=== PATIENT | male | born 1965 | race Caucasian/White ===

== ENCOUNTER 2024-03-08 13:02 | Outpatient (CLI) | payer OTHER, SELFPAY ==
--- NOTE | 2024-03-08 13:28 | ECG_ITS ---
SEE SCANNED COPY FOR INTERPRETATION AND SIGNATURE MTDD
== END 2024-03-08 13:03 | disposition home or self-care (01) ==
PROVIDERS: PCP Physician Assistant; Visit Provider Physician Assistant
DX: Z01.89 Encounter for other specified special examinations (principal)
CPT/HCPCS: 93005

== ENCOUNTER 2025-09-14 01:27 | Day surgery (SDC) | payer OTHER, SELFPAY ==
[2025-08-29 14:03] VITALS: BMI 32.5
--- OUTSIDE RECORDS SUMMARY | 2025-09-14 05:33 | XMS_ITS | Clinical Summary ---
Author Organization [facility] Address [address] [place] [id number] Care Team Providers Care Leather Leveler Name Role Phone None, Provider Primary Care Provider Unavaila ble Social History Tobacco Use Types Packs/Day Years Used Date Smoking Tobacco: Never Assessed Sex and Gender Information Value Date Recorded Sex Assigned at Not on file Legal Sex Male 8:26 AM CDT Gender Identity Not on file Sexual Orientation Not on file Plan of Treatment Health Maintenance Due Date Last Done Comments Colorectal Cancer Screening Colonoscopy (10 Years) 1963 Annual Physical 1966 Hepatitis C 1981 DTaP, Tdap and Td Vaccines ( 1 - Tdap) 1982 Pneumococcal Vaccine: 50+ Ye ars (1 of 1 - PCV) 2013 Zoster Vaccines (1 of 2) 2013 COVID-19 Vaccine (1 - 2024-2 6 season) 2025 Influenza Adult (#1) 2025 RSV Immunization or 60+ Years (1 - 1-dose 75+ series) 2038 Hepatitis A Vaccines Aged Out No long er eligible based on patient's age to complete this topic Meningococcal B Vaccine Aged Out No l onger eligible based on patient's age to complete this topic Meningococcal Vaccine Aged Out No rehan shamika eligible based on patient's age to complete this topic RSV Immunizations Under 20 Months Aged Out No longer eligible based on patient's age to complete this topic Insurance [facility] Care Teams Leather Leveler Relationship Specialty Start Date End Date None, Provider, PCP - General UNKNOWN PHYSICIAN SPECIALTY 03/12/24
--- OUTSIDE RECORDS SUMMARY | 2025-09-14 05:33 | XMS_ITS | Data Portability ---
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 Not available 01/09/2024 10:55:51 07/21/2024 07/21/2024 colonoscopy due 3 years. Testosterone free and bioavailable is low but the total is normal. Cholesterol and thyroid are stable, fasting sugar kidney and liver stable and A1c is showing prediabetes. CBC is normal Not available 07/27/2024 00:26:42 01/19/2025 01/19/2025 colonoscopy due 3 years. Not available 01/19/2025 17:01:22 07/20/2025 07/20/2025 colonoscopy due 3 years. Labs are pending from a blood draw today Not available 07/20/2025 16:38:08 Plan of Treatment Reminders Order Date Submit Date Provider Last Modified By Organization Details Last Modified Time Details Appointments ANY 15 2025 03:30P M RAFAEL Walker Not available Not available Not available Lab HbA1c (hemoglob in A1c), blood 2024 026 [facility], [facility] [address], [address], [place], [address], 07/20/2025 16:37:57 testoster one, free + total, serum 2024 026 [facility], [address], [address], [place], [address], 07/20/2025 16:37:57 CBC w/ auto diff 2024 [facility], [address], [address], [place], [address], 07/20/2025 16:37:57 CMP, serum or plasma 2024 [facility], [address], [address], [place], [address], 07/20/2025 16:37:57 urinalysi s, dipstick, reflex micro 2024 [facility], [address], [address], [place], [address], 07/20/2025 16:37:57 lipid panel, serum 2024 [facility], [address], [address], [place], [address], 07/20/2025 16:37:57 PSA, serum or plasma 2024 [facility], [address], [address], [place], [address], 07/20/2025 16:37:57 HbA1c (hemoglob in A1c), blood 2024 025 [facility] [facility], [address], [address], [place], [address], 07/24/2025 16:53:17 CBC w/ auto diff 2024 025 [facility] [facility], [address], [address], [place], [address], 07/24/2025 16:53:17 CMP, serum or plasma 2024 025 [facility] [facility], [address], [address], [place], [address], 07/24/2025 16:53:16 testoster one, free + total, serum 2024 025 [facility] [facility], [address], [address], [place], [address], 07/24/2025 16:53:16 lipid panel, serum 2024 025 [facility], [address], [address], [place], [address], 07/24/2025 16:53:15 PSA, serum or plasma 2023 025 [facility], [address], [address], [place], [address], 07/05/2025 10:01:03 HbA1c (hemoglob in A1c), blood 2023 025 [facility], [address], [address], [place], [address], 07/05/2025 10:01:03 CBC w/ auto diff 2023 025 [facility], [address], [address], [place], [address], 07/05/2025 10:01:03 CMP, serum or plasma 2023 025 [facility], [address], [address], [place], [address], 07/05/2025 10:01:03 urinalysi s complete, reflex culture 2023 025 [facility], [address], [address], [place], [address], 07/05/2025 10:01:03 testoster one, free + total, serum 2023 025 [facility], [address], [address], [place], [address], 07/05/2025 10:01:02 lipid panel, serum 2023 025 [facility], [address], [address], [place], [address], 07/05/2025 10:01:03 testoster one, free + total, serum 2023 024 [facility], [address], [address], [place], [address], 02/04/2024 09:48:55 CBC w/ auto diff 2023 024 [employer] [facility], [facility], [address], [place], [address], 02/04/2024 09:49:44 CMP, serum or plasma 2023 024 [facility], [address], [address], [place], [address], 02/04/2024 09:49:31 TSH + free T4, serum 2023 024 DOMITILA [employer] [facility], [facility] [address], [address], [place], [address], 02/04/2024 09:48:24 urinalysi s complete, reflex culture 2023 024 [facility], [address], [address], [place], [address], 02/04/2024 09:49:19 lipid panel, serum 2023 024 [employer] [facility], [address], [address], [place], [address], 02/04/2024 09:50:03 PSA, serum or plasma 2023 024 [facility], [address], [address], [place], [address], 02/04/2024 09:49:09 HbA1c (hemoglob in A1c), blood 2023 024 [facility], [address], [address], [place], [address], 02/04/2024 09:48:37 Referral otolaryng ologist referral 2023 024 DOMITILA Eastman, [address] [facility], [place], [address], 02/18/2024 18:31:56 Procedures colonosco py screening (PROC) 2024 025 Miles edmond MD, [address], [address], [place], [address], 07/20/2025 17:08:43 Surgeries None recorded. Imaging None recorded. Medication Orders losartan 50 mg tablet 2023 024 [id number], [address], [place], [id number], 07/20/2025 16:28:12 amlodipin e 5 mg tablet 2023 024 [id number], [address], [place], [id number], 07/20/2025 16:28:16 Patient TargetsNo targets recorded. 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 [place] [address] Teleph one: [phone], extens ion [phone] Pathol ogy Report Surgic al Pathol ogy Report Name: PETER GUARDADO Specim en #: [id number] Age: [birth year] (Age: 58) Locati on: [facility] Sex: M Proced ure Date: Hospit al #: [id number] 07 Date Receiv ed: Date Report ed: Provid er: VERONIKA EASTMAN MD Source : Intran arabella biopsy Preope rative Diagno sis: Intran arabella lesion . Postop erativ e Diagno sis: Intran arabella lesion . Gross Descri ption: Receiv ed in formal in, labele d with a patien t label and as biops y intran arabella lesion , are friabl e, rubber y, irregu lar to polypo id stone-gr ay tissue fragme nts that aggreg ate 0.6 x 0.6 x 0.2 cm. A small amount of soft hemorr hagic tissue is also presen t. The specim en is entire ly submit elly in casset te 1. Gross examin ation (when applic able), interp retati on, and sign out were perfor med at [facility], [address] [place] [address]. FINAL DIAGNO SIS: Intran arabella lesion , biopsy : -Papil lomato us squamo us prolif eratio n with surfac e ulcera tion and florid reacti ve change s (see commen t). -Negat nina for dyspla johnny or malign duglas. Diagno sis Commen t: Histol ogic sectio ns of this intra nasal lesion specim en show a papill omatou s squamo us prolif eratio n with areas of surfac e ulcera tion, marked acute inflam mation and reacti ve squamo us epithe lial change s. There is no eviden ce of dyspla johnny or malign duglas. Elec tronic ally Signed Out ROLF VARGAS MD PATHO LOGY [facility] at[facility] Medic ine [address] [place] [address] Telep frederick: , exten julio c 07 Patho logy Repor t Surgi moreno Patho logy Repor t Name: BOLA SEXTON Speci men #: [id number] Age: [birth year] (Age: 58) Locat ion: [facility] Sex: M Proce dure Date: 2023 Hospi dillon #: [id number] Date Recei kendrick: 2023 Date Repor elly: 2023 Provi deb: VERONIKA Celeste MD [facility] e: Intra nasal biops y Preop erati ve Diagn osis: Intra nasal lesio n. Posto perat nina Diagn osis: Intra nasal lesio n. Gross Descr iptio n: Recei kendrick in forma murali, label ed with a patie nt label and as biop sy intra nasal lesio n, are friab senait, rubdemi ry, irreg ular to polyp oid stone-g ray tissu e fragm ents that aggre gate 0.6 x 0.6 x 0.2 cm. A small amoun t of soft hemor rhagi c tissu e is also prese nt. The speci men is entir tatyana submi tted in casse tte 1. Gross exami natio n (when appli cable ), inter preta tion, and sign out were perfo rmed at [facility], [address] [facility], [place] [address] . FINAL DIAGN OSIS: Intra nasal lesio n, biops y: -Shamir lloma tous squam ous proli ferat ion with surfa ce ulcer ation and arnol d react nina giordano es (see comme nt). -Nega tive for dyspl petty or malig rehan . Diagn osis Comme nt: Histo logic secti ons of this intr anasa l lesio n speci men show a papil lomat ous squam ous proli ferat ion with areas of surfa ce ulcer ation , marke d acute infla mmati on and react nina squam ous epith elial giordano es. There is no evide nce of dyspl petty or malig rehan . [place] ctron icall y Anitha d Out ROLF VARGAS MD [facility] Not Available Not Available 12/22/2024 14:39:03 07/20/20 25 07/24/2025 LIPID PANEL WITH RATIO S cholesterol, total 196 mg/dL <200 normal Not Available [facility] [address] [address] [place], [address], 07/24/2025 16:53:15 07/20/20 25 07/24/2025 LIPID PANEL WITH RATIO S HDL cholesterol 49 mg/dL > or = 40 normal Not Available [facility] [address] [address] [place], [address], 07/24/2025 16:53:15 07/20/20 25 07/24/2025 LIPID PANEL WITH RATIO S triglyceride s 87 mg/dL <150 normal Not Available [facility] [address] [address] [place], [address], 07/24/2025 16:53:15 07/20/20 25 07/24/2025 LIPID PANEL WITH RATIO S LDL-choleste rol 128 mg/dL _(moreno c) high Refer ence range : <100 Kayla able range <100 mg/dL for prima ry preve ntion ; <70 mg/dL for patie nts with CHD or diabe tic patie nts with > or = 2 CHD risk facto rs. LDL-C is now calcu lated using the Marguerite n-Hop kins calcu cathy n, which is a valid ated novel metho d provi shae dino r accur acy than the Fried marge equat ion in the estim ation of LDL-C . Marguerite knox SS et al. JAKUB. 2013; 310(1 9): 2061- 206 (http ://ed ucati on.Qu K[employer]. com/f aq/FA Q164) Not Available [employer] [facility] [address] [place], [address], 07/24/2025 16:53:15 07/20/2007/24/2025 LIPID PANEL WITH RATIO S chol/HDLC ratio 4.0 (calc ) <5.0 normal Not Available [employer] [address], [address], 07/24/2025 16:53:15 07/20/2007/24/2025 LIPID PANEL WITH RATIO S LDL/HDL ratio 2.6 (calc ) Below Brokaw ge Risk: <2.28 Brokaw ge Risk: 2.29- 4.90 Moder ate Risk: 4.91- 7.12 High Risk: >7.13 Not Available [employer] [facility] [address] [place] [address], [address], 07/24/2025 16:53:15 07/20/2007/24/2025 LIPID PANEL WITH RATIO S non HDL cholesterol 147 mg/dL _(moreno c) <130 high For patie nts with diabe deysi plus 1 major ASCVD risk facto r, treat ing to a non-H DL-C goal of <100 mg/dL (LDL- C of <70 mg/dL ) is rosy forbeso n. Not Available [employer] [facility] [place], [address], 07/24/2025 16:53:15 07/20/2007/24/2025 TESTO STERO NE, FREE, BIOAV AILAB LE AND TOTAL , MS albumin 4.3 g/dL 3.6-5. 1 Not Available [address], [address], 07/24/2025 16:53:16 07/20/2007/24/2025 TESTO STERO NE, FREE, BIOAV AILAB LE AND TOTAL , MS sex hormone binding globulin 72 nmol/ L 22-77 Not Available [address], [address], 07/24/2025 16:53:16 07/20/2007/24/2025 TESTO STERO NE, FREE, BIOAV AILAB LE AND TOTAL , MS testosterone , free 36.4 pg/mL 46.0-2 24.0 low Not Available [address], [address], 07/24/2025 16:53:16 07/20/2007/24/2025 TESTO STERO NE, FREE, BIOAV AILAB LE AND TOTAL , MS testosterone ,bioavailabl e 71.7 NG/dL 110.0- 575.0 low Not Available [address], [address], 07/24/2025 16:53:16 07/20/2007/24/2025 TESTO STERO NE, FREE, BIOAV AILAB LE AND TOTAL , MS testosterone , total, MS 537 NG/dL 250-11 00 For addit ional tejas logan refer to https ://ed ucati on.qu carlottadi [employer]. com/f aq/FA Q165 (This link is being provi ded for antonieta salazar nal/e ducat ional purpo ses only. ) (Note ) This test was devel oped and its keeley tical perfo rmanc e jewell cteri stics have been deter mined by [employer]. It has not been clear ed or appro kendrick by the FDA. This assay has been valid ated pursu ant to the CLIA regul ation s and is used for clini moreno purpo ses. F med fusabida n [address] [facility] [address] [place] [address] [phone] [facility] l Rah Davis MD, PhD Not Available [address] [address] [place], [address], 07/24/2025 16:53:16 07/20/2007/24/2025 COMPR EHENS NINA METAB OLIC PANEL glucose 96 mg/dL 65-99 normal Fasti ng refer ence inter janelle Not Available [address], [address], 07/24/2025 16:53:16 07/20/2007/24/2025 COMPR EHENS NINA METAB OLIC PANEL urea nitrogen (BUN) 16 mg/dL 7-25 normal Not Available [address], [address], 07/24/2025 16:53:16 07/20/2007/24/2025 COMPR EHENS NINA METAB OLIC PANEL creatinine 1.08 mg/dL 0.70-1 .35 normal Not Available [address], [address], 07/24/2025 16:53:16 07/20/2007/24/2025 COMPR EHENS NINA METAB OLIC PANEL eGFR 78 mL/mi n/1.7 3m2 > or = 60 normal Not Available [address], [address], 07/24/2025 16:53:16 07/20/2007/24/2025 COMPR EHENS NINA METAB OLIC PANEL BUN/creatini ne ratio SEE NOTE: (calc ) 6-22 Not Repor elly: BUN and Creat inine are withi n refer ence range . Not Available [address], [address], 07/24/2025 16:53:16 07/20/2007/24/2025 COMPR EHENS NINA METAB OLIC PANEL sodium 139 mmol/ L 135-14 6 normal Not Available [address], [address], 07/24/2025 16:53:16 07/20/2007/24/2025 COMPR EHENS NINA METAB OLIC PANEL potassium 4.6 mmol/ L 3.5-5. 3 normal Not Available [address], [address], 07/24/2025 16:53:16 07/20/2007/24/2025 COMPR EHENS NINA METAB OLIC PANEL chloride 103 mmol/ L 98-110 normal Not Available [address], [address], 07/24/2025 16:53:16 07/20/20 25 07/24/2025 COMPR EHENS NINA METAB OLIC PANEL carbon dioxide 30 mmol/ L 20-32 normal Not Available [address], [address], 07/24/2025 16:53:16 07/20/2007/24/2025 COMPR EHENS NINA METAB OLIC PANEL calcium 9.3 mg/dL 8.6-10 .3 normal Not Available [address], [address], 07/24/2025 16:53:16 07/20/20 25 07/24/2025 COMPR EHENS NINA METAB OLIC PANEL protein, total 6.6 g/dL 6.1-8. 1 normal Not Available [employer] [address], [address], 07/24/2025 16:53:16 07/20/2007/24/2025 COMPR EHENS NINA METAB OLIC PANEL albumin 4.3 g/dL 3.6-5. 1 normal Not Available [address], [address], 07/24/2025 16:53:16 07/20/2007/24/2025 COMPR EHENS NINA METAB OLIC PANEL globulin 2.3 g/dL_ (calc ) 1.9-3. 7 normal Not Available [address], [address], 07/24/2025 16:53:16 07/20/2007/24/2025 COMPR EHENS NINA METAB OLIC PANEL albumin/glob ulin ratio 1.9 (calc ) 1.0-2. 5 normal Not Available [address], [address], 07/24/2025 16:53:16 07/20/2007/24/2025 COMPR EHENS NINA METAB OLIC PANEL bilirubin, total 0.5 mg/dL 0.2-1. 2 normal Not Available [address], [address], 07/24/2025 16:53:16 07/20/2007/24/2025 COMPR EHENS NINA METAB OLIC PANEL alkaline phosphatase 54 U/L 35-144 normal Not Available [address], [address], 07/24/2025 16:53:16 07/20/2007/24/2025 COMPR EHENS NINA METAB OLIC PANEL AST 18 U/L 10-35 normal Not Available [address], [address], 07/24/2025 16:53:16 07/20/2007/24/2025 COMPR EHENS NINA METAB OLIC PANEL ALT 22 U/L 9-46 normal Not Available [address], [address], 07/24/2025 16:53:16 07/20/2007/24/2025 CBC (INCL UDES DIFF/ PLT) white blood cell count 6.7 thous and/u L 3.8-10 .8 normal Not Available [address], [address], 07/24/2025 16:53:17 07/20/2007/24/2025 CBC (INCL UDES DIFF/ PLT) red blood cell count 4.67 erika on/uL 4.20-5 .80 normal Not Available [address], [address], 07/24/2025 16:53:17 07/20/2007/24/2025 CBC (INCL UDES DIFF/ PLT) hemoglobin 14.6 g/dL 13.2-1 7.1 normal Not Available [address], [address], 07/24/2025 16:53:17 07/20/2007/24/2025 CBC (INCL UDES DIFF/ PLT) hematocrit 44.6 % 38.5-5 0.0 normal Not Available [address], [address], 07/24/2025 16:53:17 07/20/2007/24/2025 CBC (INCL UDES DIFF/ PLT) MCV 95.5 fL 80.0-1 00.0 normal Not Available [address], [address], 07/24/2025 16:53:17 07/20/2007/24/2025 CBC (INCL UDES DIFF/ PLT) MCH 31.3 pg 27.0-3 3.0 normal Not Available [address], [address], 07/24/2025 16:53:17 07/20/2007/24/2025 CBC (INCL UDES DIFF/ PLT) MCHC 32.7 g/dL 32.0-3 6.0 normal For adult s, a sligh t decre ase in the calcu lated MCHC value (in the range of 30 to 32 g/dL) is most likel y not clini dk signi deepthi t; mayito er, it shoul d be inter prete d with cauti on in corre latio n with other red cell carlos eters and the patie nt's clini moreno condi tion. Not Available [address], [address], 07/24/2025 16:53:17 07/20/2007/24/2025 CBC (INCL UDES DIFF/ PLT) RDW 12.1 % 11.0-1 5.0 normal Not Available [address], [address], 07/24/2025 16:53:17 07/20/2007/24/2025 CBC (INCL UDES DIFF/ PLT) platelet count 273 thous and/u L 140-40 0 normal Not Available [facility] [address], [address], 07/24/2025 16:53:17 07/20/2007/24/2025 CBC (INCL UDES DIFF/ PLT) MPV 10.7 fL 7.5-12 .5 normal Not Available [facility] [address], [address], 07/24/2025 16:53:17 07/20/2007/24/2025 CBC (INCL UDES DIFF/ PLT) absolute neutrophils 3484 cells /uL 1500-7 800 normal Not Available [facility] [address], [address], 07/24/2025 16:53:17 07/20/2007/24/2025 CBC (INCL UDES DIFF/ PLT) absolute lymphocytes 2399 cells /uL 850-39 00 normal Not Available [address] [place], [address], 07/24/2025 16:53:17 07/20/2007/24/2025 CBC (INCL UDES DIFF/ PLT) absolute monocytes 610 cells /uL 200-95 0 normal Not Available [address] [place], [address], 07/24/2025 16:53:17 07/20/2007/24/2025 CBC (INCL UDES DIFF/ PLT) absolute eosinophils 141 cells /uL 15-500 normal Not Available [address], [address], 07/24/2025 16:53:17 07/20/2007/24/2025 CBC (INCL UDES DIFF/ PLT) absolute basophils 67 cells /uL 0-200 normal Not Available [address], [address], 07/24/2025 16:53:17 07/20/2007/24/2025 CBC (INCL UDES DIFF/ PLT) neutrophils 52 % normal Not Available [address], [address], 07/24/2025 16:53:17 07/20/2007/24/2025 CBC (INCL UDES DIFF/ PLT) lymphocytes 35.8 % normal Not Available [address], [address], 07/24/2025 16:53:17 07/20/2007/24/2025 CBC (INCL UDES DIFF/ PLT) monocytes 9.1 % normal Not Available [address] [place], [address], 07/24/2025 16:53:17 07/20/20 25 07/24/2025 CBC (INCL UDES DIFF/ PLT) eosinophils 2.1 % normal Not Available [facility] [address] [place], [address], 07/24/2025 16:53:17 07/20/20 25 07/24/2025 CBC (INCL UDES DIFF/ PLT) basophils 1.0 % normal Not Available [facility] [address] [place], [address], 07/24/2025 16:53:17 07/20/20 25 07/24/2025 HEMOG LOBIN A1C hemoglobin A1C 5.9 %_of_ total _HGB <5.7 high For winifred ne witho ut known diabe deysi, a hemog lobin A1c value betwe en 5.7% and 6.4% is consi stent with predi abete s and shoul d be confi rmed with a follo w-up test. For someo ne with known diabe deysi, a value <7% indic ates that their diabe deysi is well contr olled . A1c targe ts shoul d be indiv idual ized based on durat ion of diabe deysi, age, comor bid condi tions , and other consi derat ions. This assay resul t is consi stent with an incre ased risk of diabe deysi. Curre ntly, no conse nsus exist s maira kaufman use of hemog lobin A1c for diagn osis of diabe deysi for child terrie. Not Available [facility] [address] [place], [address], 07/24/2025 16:53:17 03/09/20 24 elect marino nevarez am, cristinai ne ECG, 12 leads min No observ ation record ed. [facility] (Cardiology & Emg) [address], [place], [address], 03/09/2024 17:34:11 Result Notes None recorded. Problems Name Problem SNOMED Code Status Onset Date Resolution Date Notes Provider Name and Address Organization Details Recorded Time Benign essential hypertensio n 1219862 Active 2023 RAFAEL Walker Attn: Dayo corbett,[address] [place], [address], [place] [facility] 5 07:25:45 Hyperlipide magda 32342707 Active 2023 RAFAEL Walker Attn: Dayo corbett,[address] [place], [address], [place] [facility] 4 14:52:14 Long-term drug therapy Active 2023 RAFAEL Walker Attn: Dayo corbett,[address] [place], [address], [place] [facility] 4 14:52:15 Prediabetes 126520789 Active 2023 RAFAEL Walker Attn: Dayo corbett,[address] [place], [address], [place] [facility] 4 00:26:55 Male hypogonadis m 57552244 Active 2023 RAFAEL Walker Attn: Dayo corbett,[address] [place], [address], [place] [facility] 4 00:27:13 Obesity 875045685 Active 2023 RAFAEL Walker Attn: Dayo corbett,[address] [place], [address], [place] [facility] 4 00:27:35 Body mass index 30+ - obesity 693570245 Active 2024 RAFAEL Walker Attn: Dayo corbett,[address] [place], [address], [place] [facility] 5 20:40:16 Obese class I 7000319042163 07 Active 2024 RAFAEL Walker Attn: Dayo corbett,[address] [place], [address], [facility] 5 16:37:55 Problem Notes None recorded. Procedures Surgical History Date Name Laterality Status Provider Name and Address Organization Details Recorded Time operation on hip joint completed Norma Ulloa MA [facility] 01/09/2024 10:22:47 Imaging Results None recorded. Procedure Notes None recorded. Medical Equipment None Reported. Allergies No known drug allergies Medications Name Sig Start Date Stop Date Status Note LastModified by Organization Details LastModified Time losartan 50 mg tablet Take 1 tablet every day by oral route for 90 days. active Not Available Not Available No t Available latanoprost 0.005 % eye drops INSTILL 1 DROP INTO THE RIGHT EYE EVERY NIGHT AT BEDTIME active Not Available Not Available No t Available niacin ER 1,000 mg tablet,exte nded release 24 hr TAKE 2 TABLETS BY MOUTH EVERY DAY DIRECTED 07/20 completed Not Available Not Available Not Available amlodipine 5 mg tablet Take 1 tablet every day by oral route for 90 days. active Not Available Not Available No t Available dorzolamide 22.3 mg-timolol 6.8 mg/mL eye drops INSTILL 1 DROP IN RIGHT EYE TWICE DAILY active Not Available Not Available No t Available Vitals Date Recorded Systolic And Diastolic Provider Name and Address Organization Details Last Updated DateTime 01/09/2024 120/74 mm[Hg] RAFAEL Walker Attn: [address],[address] [place], [address], [facility] 01/09/2024 10:48:25 Date Recorded Body height Body mass index (BMI) Body weight Heart rate Oxygen saturation Oxygen saturation in Arterial blood by Pulse oximetry Systolic And Diastolic Provider Name and Address Organization Details Last Updated DateTime 175.26 cm 32.4 kg/m2 72922.4 5 g 70 /min 93 % 93 % 107/74 mm[Hg] Norma Ulloa MA [facility] 4 10:20:40 Date Recorded Respiratory rate Systolic And Diastolic Provider Name and Address Organization Details Last Updated DateTime 01/19/2025 16 /min 128/70 mm[Hg] RAFAEL Walker Attn: Accounting[address] [place], [address], [facility] 01/19/2025 17:09:42 Date Recorded Body height Body mass index (BMI) Body weight Heart rate Oxygen saturation Oxygen saturation in Arterial blood by Pulse oximetry Systolic And Diastolic Provider Name and Address Organization Details Last Updated DateTime 5 175.26 cm 31.3 kg/m2 69370.5 8 g 78 /min 98 % 98 % 128/78 mm[Hg] Maria Eugenia Santoyo MA [facility] 5 16:41:04 Date Recorded Respiratory rate Systolic And Diastolic Provider Name and Address Organization Details Last Updated DateTime 07/20/2025 16 /min 118/80 mm[Hg] RAFAEL Walker Attn: Accounting, [place], [address], [facility] 07/20/2025 17:09:09 Date Recorded Body height Body mass index (BMI) Body weight Oxygen saturation Oxygen saturation in Arterial blood by Pulse oximetry Heart rate Systolic And Diastolic Provider Name and Address Organization Details Last Updated DateTime 5 175.26 cm 31.5 kg/m2 77452.1 7 g 96 % 96 % 80 /min 122/80 mm[Hg] Anahi Richards MA [facility] 16:31:44 Date Recorded Systolic And Diastolic Provider Name and Address Organization Details Last Updated DateTime 07/21/2024 110/80 mm[Hg] RAFAEL Walker Attn: Accounting[address] [place], [address], [facility] 07/21/2024 16:40:17 Date Recorded Body height Body mass index (BMI) Body weight Heart rate Oxygen saturation Oxygen saturation in Arterial blood by Pulse oximetry Respiratory rate Systolic And Diastolic Provider Name and Address Organization Details Last Updated DateTime 4 175.26 cm 32.1 kg/m2 76656.7 6 g 85 /min 96 % 96 % 20 /min 118/72 mm[Hg] Nida Middleton MA [facility] 4 16:05:01 Social History Question Answer Notes LastModified by Organizat ion Details LastModified Time Tobacco Smoking Status Never Smoker Nida Middleton MA [facility], [facility] 07/21/2024 16:05:38 Do You Have An Advance Directive? No Information n ot available 07/21/2024 Are You Blind Or Do You Have Difficulty Seeing? No Information n ot available 07/21/2024 What Is Your Level Of Caffeine Consumption? None Information not available 07/21/2024 In The 14 Days Before Symptom Onset, Have You Had Close Contact With A Laboratory-confirm ed COVID-19 While That Case Was Ill? No Information n ot available 07/21/2024 In The 14 Days Before Symptom Onset, Have You Had Close Contact With A Person Who Is Under Investigation For COVID-19 While That Person Was Ill? No Information not available 07/21/2024 Have You Been To An Area Known To Be High Risk For COVID-19? No Information not available 07/21/2024 Are You Deaf Or Do You Have Serious Difficulty Hearing? No Information not available 07/21/2024 What Type Of Diet Are You Following? REGULAR Information n ot available 07/21/2024 Are There Any Guns Present In Your Home? No Information not available 07/21/2024 What Was The Date Of Your Most Recent Tobacco Screening? 07/20/2025 Information not available 07/20/2025 What Is Your Relationship Status? Information not available 07/21/2024 Do You Use Your Seat Belt Or Car Seat Routinely? No Information not available 01/19/2025 Do You Have Smoke And Carbon Monoxide Detectors In Your Home? Yes Information not available 07/21/2024 Do You Use Sunscreen Routinely? No Information not available 07/21/2024 Has Tobacco Cessation Counseling Been Provided? No Information not available 07/20/2025 Sex: Unknown Functional Status Question Answer Note LastModified by Organizat ion Details LastModified Time Do you use any illicit or recreational drugs? No Information not available 07/20/2025 Do you or have you ever used any other forms of tobacco or nicotine? No Information not available 07/20/2025 What is your level of alcohol consumption? None Information not available 07/21/2024 Are you currently employed? Yes Information not available 01/19/2025 Are you able to care for yourself independently? 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 Heavy Information not available 07/21/2024 Mental Status None recorded. Family History Relationship Description Onset Age of this Age Resolved Age Notes LastModified by Organization Details LastModified Time Mother Malignant neoplasm of kidney [email or web address] Not available 2023 10:21:37 Medical History Condition Response Diabetes N Anxiety Disorder N Atrial Fibrillation N High Blood Pressure Y Seizures/Epilepsy N Acid Reflux (GERD) N Cancer N Thyroid Problems N Depression N Asthma N Anemia N High Cholesterol Y Heart Attack ([place]) N Heart Failure N Past Encounters Encounter ID Performer Location Encounter Start Date Encounter Closed Date Diagnosis/Indication Diagnosis SNOMED-CT Code Diagnosis ICD10 Code Diagnosis IMO Codes Diagnosis Note [id number] Guillermo Benavidez MD [facility] [address] [place] [address] 01/09/2024 10:03:07 01/09/2024 11:47:16 Benign essential hypertension 8399237 I10 stable on amlodipine 5mg and losartan 50mg daily. Hyperlipidemia 08861104 E78.5 pt insurance denied niaspan tx and he's having difficulty tolerating any OTC option so has not been taking. due for fasting lipids. Long-term drug therapy 040599615 Z79.899 routine cbc, cmp , tFTs and ua due Screening for malignant neoplasm of prostate 579863985 Z12.5 psa due. Male hypogonadism 674705 06 E29.1 screening testostero ne levels ordered. Diabetes m ellitus screening 635313924 Z13.1 annual a1c screening due Adult heal th examination 155439754 Z00.01 well exam completed. Renewal of prescription 785264718 Z76.0 refill on bp medication s. Lesion of nasal cavity 7722632243 67616732 J34.89 pt reports feeling with his finger a higher nasal lesion on right medial location. this was not visible on scope examinatio n today but should be further evaluation [facility] [id number] Guillermo Benavidez MD [facility] [employer] [address] [place] [address] 07/21/2024 15:46:26 07/21/2024 16:53:56 Benign essential hypertension 3837829 I10 stable on amlodipine 5mg and losartan 50mg daily. Hyperlipidemia 96674629 E78.5 pt insurance denied niaspan tx and he's having difficulty tolerating any OTC option so has not been taking. due for fasting lipids again in December. Current lipid panel reviewed and stable Long-term drug therapy 459915209 Z79.899 routine cbc, cmp , tFTs and ua due on next labs in December Male hypogonadism 873094 06 E29.1 Following each labs. Patient is not on supplement any longer Body mass index 30+ - obesity 403690391 Z68.32 BMI 32.1 Screening for malignant neoplasm of prostate 325711450 Z12.5 psa due in December labs Prediabetes 927677430 R7 3.03 6.2% A1c. Discussed with the patient lowering simple carbohydra deysi and added sugars in the diet and increasing some cardio exercise. We will repeat A1c testing in December Obesity 731987848 E66.8 discussed healthy diet, exercise, controllin g carbohydra deysi and added sugars in the diet [id number] Guillermo Benavidez MD [facility] [employer] [address] [place] [address] 01/19/2025 15:59:09 01/24/2025 16:07:27 Body mass index 30+ - obesity 430539032 Z68.31 BMI is 31.3 Obesity 757027387 E66.9 discussed healthy diet, exercise, controllin g carbohydra deysi and added sugars in the diet Adult [facility] examination 773485036 Z00.01 well exam completed. Benign ess ential hypertension 2894251 I10 Blood pressure is 128/70, stable on amlodipine 5mg and losartan 50mg daily. Hyperlipidemia 37512742 E78.5 pt insurance denied niaspan tx and he's having difficulty tolerating any OTC option so has not been taking. due for fasting lipids in June. Long-term drug therapy 476291452 Z79.899 routine cbc, cmp due again in jun. Male hypogonadism 426519 06 E29.1 screening testostero ne levels ordered for the next set of labs. Prediabetes 304789068 R7 3.03 6% A1c. Discussed with the patient lowering simple carbohydra deysi and added sugars in the diet and increasing some cardio exercise. Next labs due in [id number] Guillermo Benavidez MD [facility] [address] [place] [address] 07/20/2025 16:15:01 07/27/2025 11:21:41 Obese class I 9557284994 18538 E66.811 E66.3 4134692032 discussed healthy diet, exercise, controllin g carbohydra deysi and added sugars in the diet Benign ess ential hypertension 8674765 I10 Patient stopped his blood pressure medicines and interestin gly enough has a perfect blood pressure 118/80 today. He has made diet modificati ons and taking some supplement and wanted to stop the medicines because of potential cause and glaucoma worsening numbers at the eye doctor. I have encouraged the patient to continue monitoring his blood pressure. The log that he brings into the office is also all normal so we will continue to monitor for any possible rebound hypertensi on Hyperlipidemia 08931358 E78.5 pt insurance denied niaspan tx and he's having difficulty tolerating any OTC option so has not been taking. due for fasting lipids again in December. Current lipid panel reviewed and stable Prediabetes 678298627 R7 3.03 6.2% A1c. Discussed with the patient lowering simple carbohydra deysi and added sugars in the diet and increasing some cardio exercise. We will repeat A1c testing in December Male hypogonadism 449739 06 E29.1 Following each labs. Patient is not on supplement any longer Long-term drug therapy 521117619 Z79.899 routine cbc, cmp , tFTs and ua due on next labs in December Screening for malignant neoplasm of prostate 723023306 Z12.5 psa due in December labs Screening for malignant neoplasm of colon 451262996 Z12.11 [id number] patient is due for follow-up colonoscop y Health Concerns Section Related Observation LastModified by Organization Detai ls LastModified Time None Recorded Concern Status LastModified by Organization Details LastModified Time None Recorded Advance Directives Directive N: Payers Insurance Date Sequence Insurance Name Policy Number Policy Elizondo Covered Member ID Elizondo Member ID Guarantor Name 07/27/2025 1 [facility] [id number] Du Buckley [id number] Du Buckley Notes Date Note Type Note Provider Name and Address Organization Details Recorded Time 4 text/html HyperlipidemiaReported by Patientpt insurance not covering niaspan anymore. was on OTC option of niacin far less tolerable and misses dosing often due to vasomotor symptoms. HypertensionReported by Patientpt is taking amlodipine 5mg daily and losartan 50mg daily. RAFAEL Walker Attn: Accounting,[address] [facility], [place], [address], [facility] 01/09/2024 19:57:26 4 text/html HyperlipidemiaReported by Patientpt insurance not covering niaspan anymore. was on OTC option of niacin far less tolerable and misses dosing often due to vasomotor symptoms. HypertensionReported by Patientpt is taking amlodipine 5mg daily and losartan 50mg daily. RAFAEL Walker Attn: Accounting,[address] [facility], [place], [address], [facility] 07/27/2024 00:27:57 5 text/html HyperlipidemiaReported by Patientpt insurance not covering niaspan anymore. was on OTC option of niacin far less tolerable and misses dosing often due to vasomotor symptoms. HypertensionReported by Patientpt is taking amlodipine 5mg daily and losartan 50mg daily. prediabetes--6% A1c Male hypogonadism history, patient is not on supplementing longer but he does do his own natural supplement treatments RAFAEL Walker Attn: Accounting,[address] [facility], [place], [address], [facility] 01/30/2025 20:41:07 5 text/html HyperlipidemiaReported by Patientpt insurance not covering niaspan anymore. was on OTC option of niacin far less tolerable and misses dosing often due to vasomotor symptoms. HypertensionReported by Patientpt is taking amlodipine 5mg daily and losartan 50mg daily. prediabetes--6% A1c on last labs Male hypogonadism history, patient is not on supplementing longer but he does do his own natural supplement treatments RAFAEL Walker Attn: Accounting,[address] [place], [address], [facility] 07/27/2025 07:26:43
--- OUTSIDE RECORDS SUMMARY | 2025-09-14 05:33 | XMS_ITS | Clinical Summary ---
Author Organization [facility] Address [address], [address] [address] Phone Care Team Providers Care Assistant County Engineer Name Role Phone Dennis Adamson MD Primary Care Provider [phone] Eddy Estrella DO Unavailable [phone] Allergies No known active allergies Medications polyethylene glycol (MIRALAX) Powder Mix the entire bottle with 64 oz of a clear liquid. Use as directed by the office for colonoscopy prep. 255 g 0 6 Active amLODIPine (NORVASC) 5 MG Tablet Take 5 mg by mouth daily. Active losartan (COZAAR) 50 MG Tablet Take 50 mg by mouth daily. Active NIACIN CR PO Take 1,000 mg by mouth daily. Active latanoprost (XALATAN) 0.005 % Solution Place 1 Drop in affected eye(s) nightly. Active dorzolamide (TRUSOPT) 2 % Solution Place 1 Drop in affected eye(s) 3 times daily. Active TESTOSTERONE TD 200 mg by Injection route daily. Active L-Arginine Powder 500 mg of ampicillin by Does not apply route daily. Active calcium & magnesium carbonates (MYLANTA) 311-232 MG Tablet Take 1 Tab by mouth as needed. Active Foster-3 Fatty Acids (FISH OIL) 1200 MG Capsule Take 1,200 mg by mouth daily. Active Multiple Vitamin (MULTI-VITAMIN PO) Take by mouth. Activ e Family History Medical History Relation Name Comments Kidney Cancer Mother Relation Name Status Comments Mother Social History Tobacco Use Types Packs/Day Years Used Date Smoking Tobacco: Never Alcohol Use Standard Drinks/Week Comments Yes 0 (1 standard drink = 0.6 oz pur e alcohol) Sex and Gender Information Value Date Recorded Sex Assigned at Not on file Legal Sex Male 1:16 PM CDT Gender Identity Not on file Sexual Orientation Not on file Plan of Treatment Health Maintenance Due Date Last Done Comments Hepatitis C Virus (HCV) Screening 1965 TdaP Immunization 1965 Cologuard 2008 Immunochemical Fecal Occult Blood 2008 Pneumococcal Immunization (5 0+ years) (1 of 1 - PCV) 2013 Zoster Immunization (1 of 2) 2013 Influenza Immunization (#1) 2025 SARS-COV-2 Immunization ( - season) 2025 Colonoscopy 07/11/2026 07/11/2016 Colorectal Cancer Screening 07/11/2026 Respiratory Syncytial Virus (RSV) Immunization (Adult) (1 - 1-dose 75+ series) 2038 Hepatitis B Immunization Aged Out No longer eligible based on patient's age to complete this topic Human Papillomavirus (HPV) Immunization Aged Out No longer eligible b ased on patient's age to complete this topic Meningococcal Immunization (ACWY) Aged Out No longer eligible based on patient's age to complete this topic Rotavirus Immunization Aged Out No lo nger eligible based on patient's age to complete this topic Procedures Procedure Name Priority Date/Time Associated Diagnosis Comments COLONOSCOPY Routine 07/11/2016 from Last 3 Months or Most Recently Relevant to Health Maintenance Results * COLONOSCOPY (07/11/2016) Dennis Adamson MD PROCEDURE/MINOR SURGICAL ORDER MANA Final Result from Last 3 Months or Most Recently Relevant to Health Maintenance Care Teams Assistant County Engineer Relationship Specialty Start Date End Date Dennis Adamson MD PCP - General Internal Medicine 02/26/16 Eddy Estrella DO Consulting Physician Gastroenterology 07/11/16
--- OUTSIDE RECORDS SUMMARY | 2025-09-14 05:33 | XMS_ITS | Data Portability ---
Author Organization [place] - [facility], Main Office Address [address] [place] [address] Assessment Encounter Date Assessment Date Assessment LastModified by Organization Details LastModified Time 05/26/2023 05/26/2023 colonoscopy 2016 he thinks. was given 10 year clearance. will get record from [facility]. [email or web address] Not available 05/26/2023 16:48:32 Plan of Treatment Reminders Order Date Submit Date Provider Last Modified By Organization Details Last Modified Time Details Appointments None recorded . Lab CBC w/ auto diff 023 11/15/19 24 [email or web address] [facility], [address], [place], [address], 4 18:07:05 CMP, serum or plasma 023 11/15/19 24 [email or web address] [facility], [address], [place], [address], 4 18:07:05 HbA1c (hemoglo bin A1c), blood 023 11/15/19 24 [id number] [facility], [address], [place], [address], 4 18:07:05 testoste onel, free + total, serum 023 11/15/19 24 [id number] [facility], [address], [place], [address], 4 18:07:04 lipid panel, serum 023 11/15/19 24 [id number] [facility], [address], [place], [address], 18:07:04 Referral None recorded . Procedures None recorded . Surgeries None recorded . Imaging None recorded . Medication Orders None recorded . Patient TargetsNo targets recorded. Patient InstructionsNo instructions recorded. Reason for Referral None Reported. Results Created Date Observation Date Name Description Value Unit Range Abnormal Flag Note LastModifiedBy Organization Detail LastModifiedTime 05/05/2005/08/2021 TESTO STERO NE, TOTAL , MS testosterone , total, MS 376 NG/dL 250-11 00 Men with clini dk signi fican t hypog onada l sympt oms and testo stero ne value s repea tedly in the range For addit ional infor tejas medina e refer to https ://ed ucati on.IntY. MobileRQ/f aq/To Rui bhatia erone LCMSM S (This link is being provi ded for infor martin nal/e ducat ional purpo ses only. ) (Note ) This test was devel oped and its keeley tical perfo rmanc e jewell cteri stics have been deter mined by [employer]. It has not been clear ed or appro kendrick by the FDA. This assay has been valid ated pursu ant to the CLIA regul ation s and is used for clini moreno purpo ses. CECILIA knox [address] [facility] [address] [facility] [address] [phone] Natanael hunter MD Not Available [facility] [address] [place], [address], 05/24/2021 14:45:05 05/05/2005/08/2021 PSA, TOTAL PSA, total 0.5 NG/mL < or = 4.0 normal The total PSA value from this assay emily goodwin is stand ardiz ed again st the WHO stand gertrudis. The test resul t will be appro ximat tatyana 20% lower when damien red to the equim olar- stand ardiz ed total PSA (Padron man Coult er). Damien rison of seria l PSA resul ts shoul d be inter prete d with this fact in mind. This test was perfo rmed using the Sieme ns chemi lumin escen t metho d. Value s obtai dea from diffe rent assay metho ds canno t be used inter giordano eably . PSA level s, regar dless of value , shoul d not be inter prete d as absol [place] evide nce of the prese nce or absen ce of disea se. Not Available [address], [address], 05/24/2021 14:45:03 05/05/20 21 05/08/2021 CBC (INCL UDES DIFF/ PLT) white blood cell count 7.0 thous and/u L 3.8-10 .8 normal Not Available [address], [address], 05/24/2021 14:45:02 05/05/20 21 05/08/2021 CBC (INCL UDES DIFF/ PLT) red blood cell count 4.79 erika on/uL 4.20-5 .80 normal Not Available [address], [address], 05/24/2021 14:45:02 05/05/20 21 05/08/2021 CBC (INCL UDES DIFF/ PLT) hemoglobin 15.3 g/dL 13.2-1 7.1 normal Not Available [address], [address], 05/24/2021 14:45:02 05/05/2005/08/2021 CBC (INCL UDES DIFF/ PLT) hematocrit 45.5 % 38.5-5 0.0 normal Not Available [address], [address], 05/24/2021 14:45:02 05/05/20 21 05/08/2021 CBC (INCL UDES DIFF/ PLT) MCV 95.0 fL 80.0-1 00.0 normal Not Available [address], [address], 05/24/2021 14:45:02 05/05/20 21 05/08/2021 CBC (INCL UDES DIFF/ PLT) MCH 31.9 pg 27.0-3 3.0 normal Not Available [address], [address], 05/24/2021 14:45:02 05/05/2005/08/2021 CBC (INCL UDES DIFF/ PLT) MCHC 33.6 g/dL 32.0-3 6.0 normal Not Available [address], [address], 05/24/2021 14:45:02 05/05/2005/08/2021 CBC (INCL UDES DIFF/ PLT) RDW 12.4 % 11.0-1 5.0 normal Not Available [address], [address], 05/24/2021 14:45:02 05/05/2005/08/2021 CBC (INCL UDES DIFF/ PLT) platelet count 243 thous and/u L 140-40 0 normal Not Available [address], [address], 05/24/2021 14:45:02 05/05/2005/08/2021 CBC (INCL UDES DIFF/ PLT) MPV 11.3 fL 7.5-12 .5 normal Not Available [address], [address], 05/24/2021 14:45:02 05/05/2005/08/2021 CBC (INCL UDES DIFF/ PLT) absolute neutrophils 3934 cells /uL 1500-7 800 normal Not Available [address], [address], 05/24/2021 14:45:02 05/05/20 21 05/08/2021 CBC (INCL UDES DIFF/ PLT) absolute lymphocytes 2142 cells /uL 850-39 00 normal Not Available [address], [address], 05/24/2021 14:45:02 05/05/20 21 05/08/2021 CBC (INCL UDES DIFF/ PLT) absolute monocytes 679 cells /uL 200-95 0 normal Not Available [address], [address], 05/24/2021 14:45:02 05/05/20 21 05/08/2021 CBC (INCL UDES DIFF/ PLT) absolute eosinophils 182 cells /uL 15-500 normal Not Available [address], [address], 05/24/2021 14:45:02 05/05/20 21 05/08/2021 CBC (INCL UDES DIFF/ PLT) absolute basophils 63 cells /uL 0-200 normal Not Available [address], [address], 05/24/2021 14:45:02 05/05/20 21 05/08/2021 CBC (INCL UDES DIFF/ PLT) neutrophils 56.2 % normal Not Available [address], [address], 05/24/2021 14:45:02 05/05/20 21 05/08/2021 CBC (INCL UDES DIFF/ PLT) lymphocytes 30.6 % normal Not Available [address], [address], 05/24/2021 14:45:02 05/05/20 21 05/08/2021 CBC (INCL UDES DIFF/ PLT) monocytes 9.7 % normal Not Available [address], [address], 05/24/2021 14:45:02 05/05/20 21 05/08/2021 CBC (INCL UDES DIFF/ PLT) eosinophils 2.6 % normal Not Available [address], [address], 05/24/2021 14:45:02 05/05/20 21 05/08/2021 CBC (INCL UDES DIFF/ PLT) basophils 0.9 % normal Not Available [address], [address], 05/24/2021 14:45:02 05/05/20 21 05/08/2021 HEMOG LOBIN A1C hemoglobin A1C 5.4 %_of_ total _HGB <5.7 normal Not Available [address], [address], 05/24/2021 14:45:01 05/05/20 21 05/08/2021 COMPR EHENS NINA METAB OLIC PANEL glucose 108 mg/dL 65-99 high Fasti ng refer ence inter janelle For someo ne witho ut known diabe deysi, a gluco se value betwe en 100 and 125 mg/dL is consi stent with predi abete s and shoul d be confi rmed with a follo w-up test. Not Available [address], [address], 05/24/2021 14:44:59 05/05/20 21 05/08/2021 COMPR EHENS NINA METAB OLIC PANEL urea nitrogen (BUN) 19 mg/dL 7-25 normal Not Available [address], [address], 05/24/2021 14:44:59 05/05/20 21 05/08/2021 COMPR EHENS NINA METAB OLIC PANEL creatinine 0.94 mg/dL 0.70-1 .33 normal For patie nts >49 years of age, the refer ence limit for Creat inine is appro ximat tatyana 13% highe r for peopl e ident ified as Afric an-Am vashti n. Not Available [address], [address], 05/24/2021 14:44:59 05/05/20 21 05/08/2021 COMPR EHENS NINA METAB OLIC PANEL eGFR non-afr. ugandan 90 mL/mi n/1.7 3m2 > or = 60 normal Not Available [address], [address], 05/24/2021 14:44:59 05/05/20 21 05/08/2021 COMPR EHENS NINA METAB OLIC PANEL eGFR 104 mL/mi n/1.7 3m2 > or = 60 normal Not Available [address], [address], 05/24/2021 14:44:59 05/05/20 21 05/08/2021 COMPR EHENS NINA METAB OLIC PANEL BUN/creatini ne ratio not applic able (calc ) 6-22 Not Available [address], [address], 05/24/2021 14:44:59 05/05/20 21 05/08/2021 COMPR EHENS NINA METAB OLIC PANEL sodium 138 mmol/ L 135-14 6 normal Not Available [address], [address], 05/24/2021 14:44:59 05/05/20 21 05/08/2021 COMPR EHENS NINA METAB OLIC PANEL potassium 4.7 mmol/ L 3.5-5. 3 normal Not Available [address], [address], 05/24/2021 14:44:59 05/05/20 21 05/08/2021 COMPR EHENS NINA METAB OLIC PANEL chloride 102 mmol/ L 98-110 normal Not Available [address], [address], 05/24/2021 14:44:59 05/05/20 21 05/08/2021 COMPR EHENS NINA METAB OLIC PANEL carbon dioxide 31 mmol/ L 20-32 normal Not Available [address], [address], 05/24/2021 14:44:59 05/05/20 21 05/08/2021 COMPR EHENS NINA METAB OLIC PANEL calcium 8.8 mg/dL 8.6-10 .3 normal Not Available [address], [address], 05/24/2021 14:44:59 05/05/20 21 05/08/2021 COMPR EHENS NINA METAB OLIC PANEL protein, total 6.0 g/dL 6.1-8. 1 low Not Available [address], [address], 05/24/2021 14:44:59 05/05/20 21 05/08/2021 COMPR EHENS NINA METAB OLIC PANEL albumin 3.9 g/dL 3.6-5. 1 normal Not Available [address], [address], 05/24/2021 14:44:59 05/05/20 21 05/08/2021 COMPR EHENS NINA METAB OLIC PANEL globulin 2.1 g/dL_ (calc ) 1.9-3. 7 normal Not Available [address], [address], 05/24/2021 14:44:59 05/05/20 21 05/08/2021 COMPR EHENS NINA METAB OLIC PANEL albumin/glob ulin ratio 1.9 (calc ) 1.0-2. 5 normal Not Available [address], [address], 05/24/2021 14:44:59 05/05/20 21 05/08/2021 COMPR EHENS NINA METAB OLIC PANEL bilirubin, total 0.4 mg/dL 0.2-1. 2 normal Not Available [address], [address], 05/24/2021 14:44:59 05/05/20 21 05/08/2021 COMPR EHENS NINA METAB OLIC PANEL alkaline phosphatase 44 U/L 35-144 normal Not Available [address] [address] [place], [address], 05/24/2021 14:44:59 05/05/20 21 05/08/2021 COMPR EHENS NINA METAB OLIC PANEL AST 18 U/L 10-35 normal Not Available [address], [address], 05/24/2021 14:44:59 05/05/20 21 05/08/2021 COMPR EHENS NINA METAB OLIC PANEL ALT 23 U/L 9-46 normal Not Available [address], [address], 05/24/2021 14:44:59 05/05/20 21 05/08/2021 LIPID PANEL WITH RATIO S cholesterol, total 170 mg/dL <200 normal Not Available [address], [address], 05/24/2021 14:44:58 05/05/20 21 05/08/2021 LIPID PANEL WITH RATIO S HDL cholesterol 37 mg/dL > or = 40 low Not Available [address], [address], 05/24/2021 14:44:58 05/05/20 21 05/08/2021 LIPID PANEL WITH RATIO S triglyceride s 77 mg/dL <150 normal Not Available [address], [address], 05/24/2021 14:44:58 05/05/20 21 05/08/2021 LIPID PANEL WITH RATIO S LDL-choleste rol 116 mg/dL _(moreno c) high Refer ence range : <100 Kayla able range <100 mg/dL for prima ry preve ntion ; <70 mg/dL for patie nts with CHD or diabe tic patie nts with > or = 2 CHD risk facto rs. LDL-C is now calcu lated using the Marguerite n-Hop kins calcu latio n, which is a valid ated novel metho d provi ding dino r accur acy than the Fried marge equat ion in the estim ation of LDL-C . Marguerite knox SS et al. JAKUB. 2013; 310(1 9): 2061- 2068 (http ://ed ucati on.Qu Tethis. com/f aq/FA Q164) Not Available [facility] [address] [place], [address], 05/24/2021 14:44:58 05/05/20 21 05/08/2021 LIPID PANEL WITH RATIO S chol/HDLC ratio 4.6 (calc ) <5.0 normal Not Available [employer] [facility] [address] [place], [address], 05/24/2021 14:44:58 05/05/2005/08/2021 LIPID PANEL WITH RATIO S LDL/HDL ratio 3.1 (calc ) Below Gabriels ge Risk: <2.28 Gabriels ge Risk: 2.29- 4.90 Moder ate Risk: 4.91- 7.12 High Risk: >7.13 Not Available [facility] [address] [place], [address], 05/24/2021 14:44:58 05/05/2005/08/2021 LIPID PANEL WITH RATIO S non HDL cholesterol 133 mg/dL _(moreno c) <130 high For patie nts with diabe deysi plus 1 major ASCVD risk facto r, treat ing to a non-H DL-C goal of <100 mg/dL (LDL- C of <70 mg/dL ) is consi dered a thera peuti c optio n. Not Available [address], [address], 05/24/2021 14:44:58 11/10/19 22 11/15/2021 CULTU RE, URINE , ROUTI NE culture, urine, routine CULTU RE, URINE , ROUTI NE Micro Numbe r: [id number] Test Statu s: Final Speci men Sourc e: Urine , clean catch Speci men Quali ty: Adequ ate Resul t: No Growt h Not Available [address], [address], 11/15/2021 02:01:25 11/10/19 22 11/15/2021 CBC (INCL UDES DIFF/ PLT) white blood cell count 5.5 thous and/u L 3.8-10 .8 normal Not Available [address], [address], 11/15/2021 02:01:24 11/10/19 22 11/15/2021 CBC (INCL UDES DIFF/ PLT) red blood cell count 5.10 erika on/uL 4.20-5 .80 normal Not Available [address], [address], 11/15/2021 02:01:24 11/10/19 22 11/15/2021 CBC (INCL UDES DIFF/ PLT) hemoglobin 15.8 g/dL 13.2-1 7.1 normal Not Available [address], [address], 11/15/2021 02:01:24 11/10/19 22 11/15/2021 CBC (INCL UDES DIFF/ PLT) hematocrit 46.5 % 38.5-5 0.0 normal Not Available [address], [address], 11/15/2021 02:01:11/10/19 22 11/15/2021 CBC (INCL UDES DIFF/ PLT) MCV 91.2 fL 80.0-1 00.0 normal Not Available [address], [address], 11/15/2021 02:01:11/10/19 22 11/15/2021 CBC (INCL UDES DIFF/ PLT) MCH 31.0 pg 27.0-3 3.0 normal Not Available [address], [address], 11/15/2021 02:01:11/10/19 22 11/15/2021 CBC (INCL UDES DIFF/ PLT) MCHC 34.0 g/dL 32.0-3 6.0 normal Not Available [address], [address], 11/15/2021 02:01:11/10/19 22 11/15/2021 CBC (INCL UDES DIFF/ PLT) RDW 12.5 % 11.0-1 5.0 normal Not Available [address], [address], 11/15/2021 02:01:11/10/19 22 11/15/2021 CBC (INCL UDES DIFF/ PLT) platelet count 311 thous and/u L 140-40 0 normal Not Available [address], [address], 11/15/2021 02:01:11/10/19 22 11/15/2021 CBC (INCL UDES DIFF/ PLT) MPV 10.9 fL 7.5-12 .5 normal Not Available [address], [address], 11/15/2021 02:01:11/10/19 22 11/15/2021 CBC (INCL UDES DIFF/ PLT) absolute neutrophils 2827 cells /uL 1500-7 800 normal Not Available [address], [address], 11/15/2021 02:01:24 11/10/19 22 11/15/2021 CBC (INCL UDES DIFF/ PLT) absolute lymphocytes 1859 cells /uL 850-39 00 normal Not Available [address], [address], 11/15/2021 02:01:11/10/19 22 11/15/2021 CBC (INCL UDES DIFF/ PLT) absolute monocytes 550 cells /uL 200-95 0 normal Not Available [address], [address], 11/15/2021 02:01:11/10/19 22 11/15/2021 CBC (INCL UDES DIFF/ PLT) absolute eosinophils 193 cells /uL 15-500 normal Not Available [address], [address], 11/15/2021 02:01:11/10/19 22 11/15/2021 CBC (INCL UDES DIFF/ PLT) absolute basophils 72 cells /uL 0-200 normal Not Available [address], [address], 11/15/2021 02:01:11/10/19 22 11/15/2021 CBC (INCL UDES DIFF/ PLT) neutrophils 51.4 % normal Not Available [address], [address], 11/15/2021 02:01:11/10/19 22 11/15/2021 CBC (INCL UDES DIFF/ PLT) lymphocytes 33.8 % normal Not Available [address], [address], 11/15/2021 02:01:24 11/10/19 22 11/15/2021 CBC (INCL UDES DIFF/ PLT) monocytes 10.0 % normal Not Available [address], [address], 11/15/2021 02:01:11/10/19 22 11/15/2021 CBC (INCL UDES DIFF/ PLT) eosinophils 3.5 % normal Not Available [address], [address], 11/15/2021 02:01:11/10/19 22 11/15/2021 CBC (INCL UDES DIFF/ PLT) basophils 1.3 % normal Not Available [address], [address], 11/15/2021 02:01:11/10/19 22 11/15/2021 COMPR EHENS NINA METAB OLIC PANEL glucose 98 mg/dL 65-99 normal Fasti ng refer ence inter janelle Not Available [address], [address], 11/15/2021 02:01:11/10/19 22 11/15/2021 COMPR EHENS NINA METAB OLIC PANEL urea nitrogen (BUN) 11 mg/dL 7-25 normal Not Available [address], [address], 11/15/2021 02:01:11/10/19 22 11/15/2021 COMPR EHENS NINA METAB OLIC PANEL creatinine 0.99 mg/dL 0.70-1 .33 normal For patie nts >49 years of age, the refer ence limit for Creat inine is appro ximat tatyana 13% highe r for peopl e ident ified as Afric an-Am vashti n. Not Available [address], [address], 11/15/2021 02:01:11/10/19 22 11/15/2021 COMPR EHENS NINA METAB OLIC PANEL eGFR non-afr. ugandan 84 mL/mi n/1.7 3m2 > or = 60 normal Not Available [address], [address], 11/15/2021 02:01:24 11/10/19 22 11/15/2021 COMPR EHENS NINA METAB OLIC PANEL eGFR 97 mL/mi n/1.7 3m2 > or = 60 normal Not Available [address], [address], 11/15/2021 02:01:24 11/10/19 22 11/15/2021 COMPR EHENS NINA METAB OLIC PANEL BUN/creatini ne ratio not applic able (calc ) 6-22 Not Available [address], [address], 11/15/2021 02:01:11/10/19 22 11/15/2021 COMPR EHENS NINA METAB OLIC PANEL sodium 141 mmol/ L 135-14 6 normal Not Available [address], [address], 11/15/2021 02:01:24 11/10/19 22 11/15/2021 COMPR EHENS NINA METAB OLIC PANEL potassium 4.2 mmol/ L 3.5-5. 3 normal Not Available [address], [address], 11/15/2021 02:01:24 11/10/19 22 11/15/2021 COMPR EHENS NINA METAB OLIC PANEL chloride 102 mmol/ L 98-110 normal Not Available [address], [address], 11/15/2021 02:01:24 11/10/19 22 11/15/2021 COMPR EHENS NINA METAB OLIC PANEL carbon dioxide 34 mmol/ L 20-32 high Not Available [address], [address], 11/15/2021 02:01:11/10/19 22 11/15/2021 COMPR EHENS NINA METAB OLIC PANEL calcium 9.5 mg/dL 8.6-10 .3 normal Not Available [address], [address], 11/15/2021 02:01:11/10/19 22 11/15/2021 COMPR EHENS NINA METAB OLIC PANEL protein, total 6.9 g/dL 6.1-8. 1 normal Not Available [address], [address], 11/15/2021 02:01:11/10/19 22 11/15/2021 COMPR EHENS NINA METAB OLIC PANEL albumin 4.5 g/dL 3.6-5. 1 normal Not Available [address], [address], 11/15/2021 02:01:11/10/19 22 11/15/2021 COMPR EHENS NINA METAB OLIC PANEL globulin 2.4 g/dL_ (calc ) 1.9-3. 7 normal Not Available [address], [address], 11/15/2021 02:01:11/10/19 22 11/15/2021 COMPR EHENS NINA METAB OLIC PANEL albumin/glob ulin ratio 1.9 (calc ) 1.0-2. 5 normal Not Available [address], [address], 11/15/2021 02:01:11/10/19 22 11/15/2021 COMPR EHENS NINA METAB OLIC PANEL bilirubin, total 0.6 mg/dL 0.2-1. 2 normal Not Available [address], [address], 11/15/2021 02:01:24 11/10/19 22 11/15/2021 COMPR EHENS NINA METAB OLIC PANEL alkaline phosphatase 67 U/L 35-144 normal Not Available [facility] [address], [address], 11/15/2021 02:01:24 11/10/19 22 11/15/2021 COMPR EHENS NINA METAB OLIC PANEL AST 21 U/L 10-35 normal Not Available [address], [address], 11/15/2021 02:01:24 11/10/19 22 11/15/2021 COMPR EHENS NINA METAB OLIC PANEL ALT 27 U/L 9-46 normal Not Available [address], [address], 11/15/2021 02:01:24 11/10/19 22 11/15/2021 LIPID PANEL WITH REFLE X TO DIREC T LDL cholesterol, total 167 mg/dL <200 normal Not Available [address], [address], 11/15/2021 02:01:23 11/10/19 22 11/15/2021 LIPID PANEL WITH REFLE X TO DIREC T LDL HDL cholesterol 46 mg/dL > or = 40 normal Not Available [address], [address], 11/15/2021 02:01:23 11/10/19 22 11/15/2021 LIPID PANEL WITH REFLE X TO DIREC T LDL triglyceride s 68 mg/dL <150 normal Not Available [address], [address], 11/15/2021 02:01:23 11/10/19 22 11/15/2021 LIPID PANEL WITH REFLE X TO DIREC T LDL LDL-choleste rol 106 mg/dL _(moreno c) high Refer ence range [...] SS et al. JAKUB. 2013; 310(1 9): 206- 206 (http ://ed ucati on.Qu estDi [employer]. com/f aq/FA Q164) Not Available [facility] [address] [address] [place], [address], 11/15/2021 02:01:11/10/19 22 11/15/2021 LIPID PANEL WITH REFLE X TO DIREC T LDL chol/HDLC ratio 3.6 (calc ) <5.0 normal Not Available [facility] [address] [address] [address], [place], [address], 11/15/2021 02:01:11/10/19 22 11/15/2021 LIPID PANEL WITH REFLE X TO DIREC T LDL non HDL cholesterol 121 mg/dL _(moreno c) <130 normal For patie nts with diabe deysi plus 1 major ASCVD risk facto r, treat ing to a non-H DL-C goal of <100 mg/dL (LDL- C of <70 mg/dL ) is consi dered a thera peuti c optio n. Not Available [facility] [address] [address] [address], [place], [address], 11/15/2021 02:01:23 11/10/19 22 11/15/2021 TSH+F REE T4 TSH 2.01 mIU/L 0.40-4 .50 normal Not Available [facility] [address] [address] [place], [address], 11/15/2021 02:01:22 11/10/19 22 11/15/2021 TSH+F REE T4 T4, free 1.0 NG/dL 0.8-1. 8 normal Not Available [address] [address] [place], [address], 11/15/2021 02:01:22 11/10/19 22 11/15/2021 TESTO STERO NE, FREE, BIOAV AILAB LE AND TOTAL , MS testosterone , total, MS 499 NG/dL 250-11 00 For addit ional infor tejas medina refer to https ://ed ucati on.qu estdi [employer] t[employer]. com/f aq/FA Q165 (This link is being provi ded for infor martin nal/e ducat ional purpo ses only. ) (Note ) This test was devel oped and its keeley tical perfo rmanc e jewell cteri stics have been deter mined by [facility]. It has not been clear ed or appro kendrick by the FDA. This assay has been valid ated pursu ant to the CLIA regul ation s and is used for clini moreno purpo ses. MDF med fusio n [address] [facility] [address] [facility] [address] [phone] Natanael hunter MD Not Available [facility] [address] [address] [address], [place], [address], 11/15/2021 02:01:11/10/19 22 11/15/2021 TESTO STERO NE, FREE, BIOAV AILAB LE AND TOTAL , MS albumin 4.7 g/dL 3.6-5. 1 Not Available [facility] [address] [address] [place], [address], 11/15/2021 02:01:11/10/19 22 11/15/2021 TESTO STERO NE, FREE, BIOAV AILAB LE AND TOTAL , MS sex hormone binding globulin 51.5 nmol/ L 22-77 Not Available [facility] [address] [address] [place], [address], 11/15/2021 02:01:19 11/10/19 22 11/15/2021 TESTO STERO NE, FREE, BIOAV AILAB LE AND TOTAL , MS testosterone , free 45.2 pg/mL 46.0-2 24.0 low Not Available [facility] [address] [place], [address], 11/15/2021 02:01:11/10/19 22 11/15/2021 TESTO STERO NE, FREE, BIOAV AILAB LE AND TOTAL , MS testosterone ,bioavailabl e 96.9 NG/dL 110.0- 575.0 low Not Available [facility] [address] [address] [place], [address], 11/15/2021 02:01:05/04/20 22 05/07/2022 PSA, TOTAL PSA, total 0.83 NG/mL < or = 4.00 normal The total PSA value from this assay syste m is stand ardiz ed again st the WHO stand gertrudis. The test resul t will be appro ximat tatyana 20% lower when damien red to the equim olar- stand ardiz ed total PSA (Padron man Coult er). Damien rison of seria l PSA resul ts shoul d be inter prete d with this fact in mind. This test was perfo rmed using the [facility] chemi lumin escen t metho d. Value s obtai dea from diffe rent assay metho ds canno t be used inter giordano eably . PSA level s, regar dless of value , shoul d not be inter prete d as absol [place] ev[place] nce of the prese nce or absen ce of disea se. Not Available [facility] [address] [address] [place], [address], 05/07/2022 13:40:34 05/04/20 22 05/07/2022 CBC (INCL UDES DIFF/ PLT) white blood cell count 6.4 thous and/u L 3.8-10 .8 normal Not Available [facility] [address] [address] [place], [address], 05/07/2022 13:40:32 05/04/20 22 05/07/2022 CBC (INCL UDES DIFF/ PLT) red blood cell count 4.74 erika on/uL 4.20-5 .80 normal Not Available [address], [address], 05/07/2022 13:40:32 05/04/20 22 05/07/2022 CBC (INCL UDES DIFF/ PLT) hemoglobin 15.1 g/dL 13.2-1 7.1 normal Not Available [address], [address], 05/07/2022 13:40:32 05/04/20 22 05/07/2022 CBC (INCL UDES DIFF/ PLT) hematocrit 45.5 % 38.5-5 0.0 normal Not Available [address], [address], 05/07/2022 13:40:32 05/04/20 22 05/07/2022 CBC (INCL UDES DIFF/ PLT) MCV 96.0 fL 80.0-1 00.0 normal Not Available [address], [address], 05/07/2022 13:40:32 05/04/20 22 05/07/2022 CBC (INCL UDES DIFF/ PLT) MCH 31.9 pg 27.0-3 3.0 normal Not Available [address], [address], 05/07/2022 13:40:32 05/04/20 22 05/07/2022 CBC (INCL UDES DIFF/ PLT) MCHC 33.2 g/dL 32.0-3 6.0 normal Not Available [address], [address], 05/07/2022 13:40:32 05/04/20 22 05/07/2022 CBC (INCL UDES DIFF/ PLT) RDW 11.8 % 11.0-1 5.0 normal Not Available [address], [address], 05/07/2022 13:40:32 05/04/20 22 05/07/2022 CBC (INCL UDES DIFF/ PLT) platelet count 283 thous and/u L 140-40 0 normal Not Available [address], [address], 05/07/2022 13:40:32 05/04/20 22 05/07/2022 CBC (INCL UDES DIFF/ PLT) MPV 11.2 fL 7.5-12 .5 normal Not Available [address], [address], 05/07/2022 13:40:32 05/04/20 22 05/07/2022 CBC (INCL UDES DIFF/ PLT) absolute neutrophils 3411 cells /uL 1500-7 800 normal Not Available [address], [address], 05/07/2022 13:40:32 05/04/20 22 05/07/2022 CBC (INCL UDES DIFF/ PLT) absolute lymphocytes 2086 cells /uL 850-39 00 normal Not Available [address], [address], 05/07/2022 13:40:32 05/04/20 22 05/07/2022 CBC (INCL UDES DIFF/ PLT) absolute monocytes 685 cells /uL 200-95 0 normal Not Available [address], [address], 05/07/2022 13:40:32 05/04/20 22 05/07/2022 CBC (INCL UDES DIFF/ PLT) absolute eosinophils 160 cells /uL 15-500 normal Not Available [address], [address], 05/07/2022 13:40:32 05/04/20 22 05/07/2022 CBC (INCL UDES DIFF/ PLT) absolute basophils 58 cells /uL 0-200 normal Not Available [address], [address], 05/07/2022 13:40:32 05/04/20 22 05/07/2022 CBC (INCL UDES DIFF/ PLT) neutrophils 53.3 % normal Not Available [facility] [address], [address], 05/07/2022 13:40:32 05/04/20 22 05/07/2022 CBC (INCL UDES DIFF/ PLT) lymphocytes 32.6 % normal Not Available [facility] [address], [address], 05/07/2022 13:40:32 05/04/20 22 05/07/2022 CBC (INCL UDES DIFF/ PLT) monocytes 10.7 % normal Not Available [facility] [address], [address], 05/07/2022 13:40:32 05/04/20 22 05/07/2022 CBC (INCL UDES DIFF/ PLT) eosinophils 2.5 % normal Not Available [facility] [address], [address], 05/07/2022 13:40:32 05/04/20 22 05/07/2022 CBC (INCL UDES DIFF/ PLT) basophils 0.9 % normal Not Available [facility] [address], [address], 05/07/2022 13:40:32 05/04/20 22 05/07/2022 COMPR EHENS NINA METAB OLIC PANEL glucose 100 mg/dL 65-99 high Fasti ng refer ence inter janelle For someo ne witho ut known diabe deysi, a gluco se value betwe en 100 and 125 mg/dL is consi stent with predi abete s and shoul d be confi rmed with a follo w-up test. Not Available [facility] [address] [address] [place], [address], 05/07/2022 13:40:32 05/04/20 22 05/07/2022 COMPR EHENS NINA METAB OLIC PANEL eGFR 115 mL/mi n/1.7 3m2 > or = 60 normal Not Available [facility] [address] [address] [place], [address], 05/07/2022 13:40:32 05/04/20 22 05/07/2022 COMPR EHENS NINA METAB OLIC PANEL urea nitrogen (BUN) 14 mg/dL 7-25 normal Not Available [facility] [address] [address] [place], [address], 05/07/2022 13:40:32 05/04/20 22 05/07/2022 COMPR EHENS NINA METAB OLIC PANEL creatinine 0.79 mg/dL 0.70-1 .33 normal For patie nts >49 years of age, the refer ence limit for Creat inine is appro ximat tatyana 13% highe r for peopl e ident ified as Afric an-Am vashti n. Not Available [facility] [address] [address] [place], [address], 05/07/2022 13:40:32 05/04/20 22 05/07/2022 COMPR EHENS NINA METAB OLIC PANEL eGFR non-afr. ugandan 99 mL/mi n/1.7 3m2 > or = 60 normal Not Available [facility] [address] [address] [place], [address], 05/07/2022 13:40:32 05/04/20 22 05/07/2022 COMPR EHENS NINA METAB OLIC PANEL BUN/creatini ne ratio not applic able (calc ) 6-22 Not Available [facility] [address] [address] [place], [address], 05/07/2022 13:40:32 05/04/20 22 05/07/2022 COMPR EHENS NINA METAB OLIC PANEL sodium 140 mmol/ L 135-14 6 normal Not Available [address], [address], 05/07/2022 13:40:32 05/04/20 22 05/07/2022 COMPR EHENS NINA METAB OLIC PANEL potassium 4.3 mmol/ L 3.5-5. 3 normal Not Available [address], [address], 05/07/2022 13:40:32 05/04/20 22 05/07/2022 COMPR EHENS NINA METAB OLIC PANEL chloride 102 mmol/ L 98-110 normal Not Available [address], [address], 05/07/2022 13:40:32 05/04/20 22 05/07/2022 COMPR EHENS NINA METAB OLIC PANEL carbon dioxide 31 mmol/ L 20-32 normal Not Available [address], [address], 05/07/2022 13:40:32 05/04/20 22 05/07/2022 COMPR EHENS NINA METAB OLIC PANEL calcium 9.4 mg/dL 8.6-10 .3 normal Not Available [address], [address], 05/07/2022 13:40:32 05/04/20 22 05/07/2022 COMPR EHENS NINA METAB OLIC PANEL protein, total 7.0 g/dL 6.1-8. 1 normal Not Available [address], [address], 05/07/2022 13:40:32 05/04/20 22 05/07/2022 COMPR EHENS NINA METAB OLIC PANEL albumin 4.4 g/dL 3.6-5. 1 normal Not Available [address], [address], 05/07/2022 13:40:32 05/04/20 22 05/07/2022 COMPR EHENS NINA METAB OLIC PANEL globulin 2.6 g/dL_ (calc ) 1.9-3. 7 normal Not Available [address], [address], 05/07/2022 13:40:32 05/04/20 22 05/07/2022 COMPR EHENS NINA METAB OLIC PANEL albumin/glob ulin ratio 1.7 (calc ) 1.0-2. 5 normal Not Available [address], [address], 05/07/2022 13:40:32 05/04/20 22 05/07/2022 COMPR EHENS NINA METAB OLIC PANEL bilirubin, total 0.5 mg/dL 0.2-1. 2 normal Not Available [address], [address], 05/07/2022 13:40:32 05/04/20 22 05/07/2022 COMPR EHENS NINA METAB OLIC PANEL alkaline phosphatase 60 U/L 35-144 normal Not Available [address] [address] [place], [address], 05/07/2022 13:40:32 05/04/20 22 05/07/2022 COMPR EHENS NINA METAB OLIC PANEL AST 17 U/L 10-35 normal Not Available [address], [address], 05/07/2022 13:40:32 05/04/20 22 05/07/2022 COMPR EHENS NINA METAB OLIC PANEL ALT 20 U/L 9-46 normal Not Available [address], [address], 05/07/2022 13:40:32 05/04/20 22 05/07/2022 LIPID PANEL WITH RATIO S cholesterol, total 195 mg/dL <200 normal Not Available [address], [address], 05/07/2022 13:40:31 05/04/20 22 05/07/2022 LIPID PANEL WITH RATIO S HDL cholesterol 44 mg/dL > or = 40 normal Not Available [address] [address] [place], [address], 05/07/2022 13:40:31 05/04/20 22 05/07/2022 LIPID PANEL WITH RATIO S triglyceride s 87 mg/dL <150 normal Not Available [address], [address], 05/07/2022 13:40:31 05/04/20 22 05/07/2022 LIPID PANEL WITH RATIO S LDL-choleste rol 132 mg/dL _(moreno c) high Refer ence range : <100 Kayla able range <100 mg/dL for prima ry preve ntion ; <70 mg/dL for patie nts with CHD or diabe tic patie nts with > or = 2 CHD risk facto rs. LDL-C is now calcu lated using the Marguerite n-Hop kins calcu cathy n, which is a valid ated novel roo rosendo sun r accur acy than the Fried marge equat ion in the estim ation of LDL-C . Marguerite knox SS et al. JAKUB. 2013; 310(1 9): 2061- 2068 (http ://ed ucati on.Qu Kala [employer]. com/f aq/FA Q164) Not Available [address] [address] [place], [address], 05/07/2022 13:40:31 05/04/20 22 05/07/2022 LIPID PANEL WITH RATIO S chol/HDLC ratio 4.4 (calc ) <5.0 normal Not Available [address], [address], 05/07/2022 13:40:31 05/04/20 22 05/07/2022 LIPID PANEL WITH RATIO S LDL/HDL ratio 3.0 (calc ) Below Gabriels ge Risk: <2.28 Gabriels ge Risk: 2.29- 4.90 Moder ate Risk: 4.91- 7.12 High Risk: >7.13 Not Available [address], [address], 05/07/2022 13:40:31 05/04/20 22 05/07/2022 LIPID PANEL WITH RATIO S non HDL cholesterol 151 mg/dL _(moreno c) <130 high For patie nts with diabe deysi plus 1 major ASCVD risk facto r, treat ing to a non-H DL-C goal of <100 mg/dL (LDL- C of <70 mg/dL ) is rosy forbeso n. Not Available [address], [place], [address], 05/07/2022 13:40:31 05/04/20 22 05/07/2022 TESTO STERO NE, FREE, BIOAV AILAB LE AND TOTAL , MS albumin 4.6 g/dL 3.6-5. 1 Not Available [address], [address], 05/07/2022 13:40:30 05/04/20 22 05/07/2022 TESTO STERO NE, FREE, BIOAV AILAB LE AND TOTAL , MS sex hormone binding globulin 52.0 nmol/ L 22-77 Not Available [address], [address], 05/07/2022 13:40:30 05/04/20 22 05/07/2022 TESTO STERO NE, FREE, BIOAV AILAB LE AND TOTAL , MS testosterone , free 32.0 pg/mL 46.0-2 24.0 low Not Available [id number], [place], [address], 05/07/2022 13:40:30 05/04/2005/07/2022 TESTO STERO NE, FREE, BIOAV AILAB LE AND TOTAL , MS testosterone ,bioavailabl e 67.2 NG/dL 110.0- 575.0 low Not Available [facility] [place] [address] [address], [place], [address], 05/07/2022 13:40:30 05/04/20 22 05/07/2022 TESTO STERO NE, FREE, BIOAV AILAB LE AND TOTAL , MS testosterone , total, MS 367 NG/dL 250-11 00 Men with clini dk signi fican t hypog onada l sympt oms and testo stero ne value s repea tedly in the range of the 200-3 00 ng/dL or less, may benef it from testo stero ne treat ment after adequ ate risk and benef its couns eling . For addit ional infor tejas medina e refer to https ://ed ucati on.qu estEqalix. com/f aq/FA Q192 (This link is being provi ded for infor martin nal/e ducat ional purpo ses only. ) (Note ) This test was devel oped and its keeley tical perfo rmanc e jewell cteri stics have been deter mined by [employer]. It has not been clear ed or appro kendrick by the FDA. This assay has been valid ated pursu ant to the CLIA regul ation s and is used for clini moreno purpo ses. MDF med fusio n [address] [facility] [address] [place] [address] [phone] Natanael hunter MD Not Available [facility] [address] [address], [place], [address], 05/07/2022 13:40:30 11/09/19 23 11/12/2022 CBC (INCL UDES DIFF/ PLT) white blood cell count 6.0 thous and/u L 3.8-10 .8 normal Not Available [address], [address], 11/12/2022 19:26:30 11/09/19 23 11/12/2022 CBC (INCL UDES DIFF/ PLT) red blood cell count 4.73 erika on/uL 4.20-5 .80 normal Not Available [address], [address], 11/12/2022 19:26:30 11/09/19 23 11/12/2022 CBC (INCL UDES DIFF/ PLT) hemoglobin 15.5 g/dL 13.2-1 7.1 normal Not Available [address], [address], 11/12/2022 19:26:30 11/09/19 23 11/12/2022 CBC (INCL UDES DIFF/ PLT) hematocrit 45.0 % 38.5-5 0.0 normal Not Available [address], [address], 11/12/2022 19:26:30 11/09/19 23 11/12/2022 CBC (INCL UDES DIFF/ PLT) MCV 95.1 fL 80.0-1 00.0 normal Not Available [address], [address], 11/12/2022 19:26:30 11/09/19 23 11/12/2022 CBC (INCL UDES DIFF/ PLT) MCH 32.8 pg 27.0-3 3.0 normal Not Available [address], [address], 11/12/2022 19:26:30 11/09/19 23 11/12/2022 CBC (INCL UDES DIFF/ PLT) MCHC 34.4 g/dL 32.0-3 6.0 normal Not Available [address], [address], 11/12/2022 19:26:30 11/09/19 23 11/12/2022 CBC (INCL UDES DIFF/ PLT) RDW 11.9 % 11.0-1 5.0 normal Not Available [address], [address], 11/12/2022 19:26:30 11/09/19 23 11/12/2022 CBC (INCL UDES DIFF/ PLT) platelet count 293 thous and/u L 140-40 0 normal Not Available [address], [address], 11/12/2022 19:26:30 11/09/19 23 11/12/2022 CBC (INCL UDES DIFF/ PLT) MPV 10.7 fL 7.5-12 .5 normal Not Available [address], [address], 11/12/2022 19:26:30 11/09/19 23 11/12/2022 CBC (INCL UDES DIFF/ PLT) absolute neutrophils 3192 cells /uL 1500-7 800 normal Not Available [address], [address], 11/12/2022 19:26:30 11/09/19 23 11/12/2022 CBC (INCL UDES DIFF/ PLT) absolute lymphocytes 2052 cells /uL 850-39 00 normal Not Available [address], [address], 11/12/2022 19:26:30 11/09/19 23 11/12/2022 CBC (INCL UDES DIFF/ PLT) absolute monocytes 588 cells /uL 200-95 0 normal Not Available [address], [address], 11/12/2022 19:26:30 11/09/19 23 11/12/2022 CBC (INCL UDES DIFF/ PLT) absolute eosinophils 108 cells /uL 15-500 normal Not Available [address], [address], 11/12/2022 19:26:30 11/09/19 23 11/12/2022 CBC (INCL UDES DIFF/ PLT) absolute basophils 60 cells /uL 0-200 normal Not Available [address], [address], 11/12/2022 19:26:30 11/09/19 23 11/12/2022 CBC (INCL UDES DIFF/ PLT) neutrophils 53.2 % normal Not Available [address], [address], 11/12/2022 19:26:30 11/09/19 23 11/12/2022 CBC (INCL UDES DIFF/ PLT) lymphocytes 34.2 % normal Not Available [address], [address], 11/12/2022 19:26:30 11/09/19 23 11/12/2022 CBC (INCL UDES DIFF/ PLT) monocytes 9.8 % normal Not Available [address], [address], 11/12/2022 19:26:30 11/09/19 23 11/12/2022 CBC (INCL UDES DIFF/ PLT) eosinophils 1.8 % normal Not Available [address], [address], 11/12/2022 19:26:30 11/09/19 23 11/12/2022 CBC (INCL UDES DIFF/ PLT) basophils 1.0 % normal Not Available [address], [address], 11/12/2022 19:26:30 11/09/19 23 11/12/2022 HEMOG LOBIN A1C hemoglobin A1C 5.4 %_of_ total _HGB <5.7 normal For the purpo se of evelio edwards for the prese nce of diabe deysi: <5.7% Consi stent with the absen ce of diabe deysi 5.7-6 .4% Consi stent with incre ased risk for diabe deysi (pred iabet es) > or =6.5% Consi stent with diabe deysi This assay resul t is consi stent with a decre ased risk of diabe deysi. Curre ntly, no conse nsus exist s maira kaufman use of hemog lobin A1c for diagn osis of diabe deysi in child [place]. Accor ding to Ameri can Diabe dyesi Assoc iatio n (ADA) guide lines , hemog lobin A1c <7.0% repre sents optim al contr ol in non-p regna nt diabe tic patie nts. Diffe rent metri cs may apply to speci fic patie nt popul ation s. Stand ards of Medic al Care in Diabe deysi(A DA). Not Available [facility] [address] [place], [address], 11/12/2022 19:26:30 11/09/19 23 11/12/2022 COMPR EHENS NINA METAB OLIC PANEL glucose 111 mg/dL 65-99 high Fasti ng refer ence inter janelle For someo ne witho ut known diabe deysi, a gluco se value betwe en 100 and 125 mg/dL is consi stent with predi abete s and shoul d be confi rmed with a follo w-up test. Not Available [facility] [address] [place], [address], 11/12/2022 19:26:29 11/09/19 23 11/12/2022 COMPR EHENS NINA METAB OLIC PANEL urea nitrogen (BUN) 15 mg/dL 7-25 normal Not Available [facility] [address] [place], [address], 11/12/2022 19:26:29 11/09/19 23 11/12/2022 COMPR EHENS NINA METAB OLIC PANEL creatinine 0.82 mg/dL 0.70-1 .30 normal Not Available [address] [address] [place], [address], 11/12/2022 19:26:29 11/09/19 23 11/12/2022 COMPR EHENS NINA METAB OLIC PANEL potassium 4.6 mmol/ L 3.5-5. 3 normal Not Available [place] [address] [place], [address], 11/12/2022 19:26:29 11/09/19 23 11/12/2022 COMPR EHENS NINA METAB OLIC PANEL eGFR 101 mL/mi n/1.7 3m2 > or = 60 normal The eGFR is based on the CKD-E PI 2020 equat ion. To calcu late the new eGFR from a previ ous Creat inine or Cysta tin C resul t, go to https ://sraina kumar.carmen olvera/adi muñiz s/ kdoqi /gfr% 5Fcal culat or Not Available [address] [address] [place], [address], 11/12/2022 19:26:29 11/09/19 23 11/12/2022 COMPR EHENS NINA METAB OLIC PANEL BUN/creatini ne ratio not applic able (calc ) 6-22 Not Available [address] [address] [place], [address], 11/12/2022 19:26:29 11/09/19 23 11/12/2022 COMPR EHENS NINA METAB OLIC PANEL sodium 140 mmol/ L 135-14 6 normal Not Available [facility] [place] [address] [place], [address], 11/12/2022 19:26:29 11/09/19 23 11/12/2022 COMPR EHENS NINA METAB OLIC PANEL chloride 101 mmol/ L 98-110 normal Not Available [address] [address] [place], [address], 11/12/2022 19:26:29 11/09/19 23 11/12/2022 COMPR EHENS NINA METAB OLIC PANEL carbon dioxide 33 mmol/ L 20-32 high Not Available [address], [address], 11/12/2022 19:26:29 11/09/19 23 11/12/2022 COMPR EHENS NINA METAB OLIC PANEL calcium 9.7 mg/dL 8.6-10 .3 normal Not Available [address], [address], 11/12/2022 19:26:29 11/09/19 23 11/12/2022 COMPR EHENS NINA METAB OLIC PANEL protein, total 7.1 g/dL 6.1-8. 1 normal Not Available [address], [address], 11/12/2022 19:26:29 11/09/19 23 11/12/2022 COMPR EHENS NINA METAB OLIC PANEL albumin 4.5 g/dL 3.6-5. 1 normal Not Available [address], [address], 11/12/2022 19:26:29 11/09/19 23 11/12/2022 COMPR EHENS NINA METAB OLIC PANEL globulin 2.6 g/dL_ (calc ) 1.9-3. 7 normal Not Available [address], [address], 11/12/2022 19:26:29 11/09/19 23 11/12/2022 COMPR EHENS NINA METAB OLIC PANEL albumin/glob ulin ratio 1.7 (calc ) 1.0-2. 5 normal Not Available [address], [address], 11/12/2022 19:26:29 11/09/19 23 11/12/2022 COMPR EHENS NINA METAB OLIC PANEL bilirubin, total 0.5 mg/dL 0.2-1. 2 normal Not Available [address], [address], 11/12/2022 19:26:29 11/09/19 23 11/12/2022 COMPR EHENS NINA METAB OLIC PANEL alkaline phosphatase 58 U/L 35-144 normal Not Available [address], [address], 11/12/2022 19:26:29 11/09/19 23 11/12/2022 COMPR EHENS NINA METAB OLIC PANEL AST 20 U/L 10-35 normal Not Available [address], [address], 11/12/2022 19:26:29 11/09/19 23 11/12/2022 COMPR EHENS NINA METAB OLIC PANEL ALT 24 U/L 9-46 normal Not Available [address], [address], 11/12/2022 19:26:29 11/09/19 23 11/12/2022 LIPID PANEL WITH RATIO S cholesterol, total 205 mg/dL <200 high Not Available [address], [address], 11/12/2022 19:26:29 11/09/19 23 11/12/2022 LIPID PANEL WITH RATIO S HDL cholesterol 58 mg/dL > or = 40 normal Not Available [address], [address], 11/12/2022 19:26:29 11/09/19 23 11/12/2022 LIPID PANEL WITH RATIO S triglyceride s 86 mg/dL <150 normal Not Available [address], [address], 11/12/2022 19:26:29 11/09/1911/12/2022 LIPID PANEL WITH RATIO S LDL-choleste rol 128 mg/dL _(moreno c) high Refer ence range : <100 Kayla able range <100 mg/dL for prima ry preve ntion ; <70 mg/dL for patie nts with CHD or diabe tic patie nts with > or = 2 CHD risk facto rs. LDL-C is now calcu lated using the Marguerite n-Hop kins ariellau cathy n, which is a valid ated novel roo rosendo mckeonte r accur acy than the Fried marge equat ion in the estim ation of LDL-C . Marguerite knox SS et al. JAKUB. 2013; 310(1 9): 2061- 2068 (http ://ed ucati on.Fifty100 carlottaLIVELENZ. MobileRQ/f aq/FA Q164) Not Available [facility] [address] [place], [address], 11/12/2022 19:26:29 11/09/1911/12/2022 LIPID PANEL WITH RATIO S chol/HDLC ratio 3.5 (calc ) <5.0 normal Not Available [facility] [address] [place], [address], 11/12/2022 19:26:29 11/09/1911/12/2022 LIPID PANEL WITH RATIO S LDL/HDL ratio 2.2 (calc ) Below Gabriels ge Risk: <2.28 Gabriels ge Risk: 2.29- 4.90 Moder ate Risk: 4.91- 7.12 High Risk: >7.13 Not Available [facility] [address] [place], [address], 11/12/2022 19:26:29 11/09/1911/12/2022 LIPID PANEL WITH RATIO S non HDL cholesterol 147 mg/dL _(moreno c) <130 high For patie nts with diabe deysi plus 1 major ASCVD risk facto r, treat ing to a non-H DL-C goal of <100 mg/dL (LDL- C of <70 mg/dL ) is consi loreleid a bhargav shay optio n. Not Available [place] [address] [address] [place], [address], 11/12/2022 19:26:29 11/09/19 23 11/12/2022 TSH+F REE T4 T4, free 1.0 NG/dL 0.8-1. 8 normal Not Available [address], [address], 11/12/2022 19:26:29 11/09/19 23 11/12/2022 TSH+F REE T4 TSH 2.96 mIU/L 0.40-4 .50 normal Not Available [address], [address], 11/12/2022 19:26:29 11/09/19 23 11/12/2022 TESTO STERO NE, FREE, BIOAV AILAB LE AND TOTAL , MS albumin 4.6 g/dL 3.6-5. 1 Not Available [address], [address], 11/12/2022 19:26:28 11/09/1911/12/2022 TESTO STERO NE, FREE, BIOAV AILAB LE AND TOTAL , MS sex hormone binding globulin 67.2 nmol/ L 22-77 Not Available [address], [address], 11/12/2022 19:26:28 11/09/1911/12/2022 TESTO STERO NE, FREE, BIOAV AILAB LE AND TOTAL , MS testosterone , free 29.0 pg/mL 46.0-2 24.0 low Not Available [address], [address], 11/12/2022 19:26:28 11/09/19 23 11/12/2022 TESTO STERO NE, FREE, BIOAV AILAB LE AND TOTAL , MS testosterone ,bioavailabl e 60.9 NG/dL 110.0- 575.0 low Not Available [place] [address] [place], [address], 11/12/2022 19:26:28 11/09/1911/12/2022 TESTO STERO NE, FREE, BIOAV AILAB LE AND TOTAL , MS testosterone , total, MS 415 NG/dL 250-11 00 For addit ional infor tejas medina refer to https ://ed ucati on.qu estdi [employer] tics. com/f aq/FA Q165 (This link is being provi ded for infor martin nal/e ducat ional purpo ses only. ) (Note ) This test was devel oped and its keeley tical perfo rmanc e jewell cteri stics have been deter mined by [employer]. It has not been clear ed or appro kendrick by the FDA. This assay has been valid ated pursu ant to the CLIA regul ation s and is used for clini moreno purpo ses. MDF med fusio n [address] [facility] [address] [facility] [address] [phone] Natanael hunter MD Not Available [place] [address] [place], [address], 11/12/2022 19:26:28 05/16/20 23 05/21/2023 TESTO STERO NE, FREE, BIOAV AILAB LE AND TOTAL , MS albumin 4.7 g/dL 3.6-5. 1 Not Available [facility] [place] [address] [place], [address], 05/21/2023 13:23:47 05/16/20 23 05/21/2023 TESTO STERO NE, FREE, BIOAV AILAB LE AND TOTAL , MS sex hormone binding globulin 72.6 nmol/ L 22-77 Not Available [facility] [place] [address] [place], [address], 05/21/2023 13:23:47 05/16/20 23 05/21/2023 TESTO STERO NE, FREE, BIOAV AILAB LE AND TOTAL , MS testosterone , free 29.2 pg/mL 46.0-2 24.0 low Not Available [facility] [place] [address] [place], [address], 05/21/2023 13:23:47 05/16/20 23 05/21/2023 TESTO STERO NE, FREE, BIOAV AILAB LE AND TOTAL , MS testosterone ,bioavailabl e 62.7 NG/dL 110.0- 575.0 low Not Available [facility] [place] [address] [place], [address], 05/21/2023 13:23:47 05/16/20 23 05/21/2023 TESTO STERO NE, FREE, BIOAV AILAB LE AND TOTAL , MS testosterone , total, MS 448 NG/dL 250-11 00 For addit ional infor tejas medina e refer to https ://ed ucati on.qu estEqalix. com/f aq/FA Q165 (This link is being provi ded for infor martin nal/e ducat ional purpo ses only. ) (Note ) This test was devel oped and its keeley tical perfo rmanc e jewell cteri stics have been deter mined by [employer]. It has not been clear ed or appro kendrick by the FDA. This assay has been valid ated pursu ant to the CLIA regul ation s and is used for clini moreno purpo ses. F med sabine n [address] [facility] [address] [facility] [address] [phone] Wilmer hung MD Not Available [facility] [place] [address] [place], [address], 05/21/2023 13:23:47 05/16/2005/21/2023 TSH+F REE T4 TSH 2.05 mIU/L 0.40-4 .50 normal Not Available [place] [address] [place], [address], 05/21/2023 13:23:48 05/16/2005/21/2023 TSH+F REE T4 T4, free 1.1 NG/dL 0.8-1. 8 normal Not Available [address], [address], 05/21/2023 13:23:48 05/16/20 23 05/21/2023 LIPID PANEL WITH RATIO S cholesterol, total 204 mg/dL <200 high Not Available [address], [address], 05/21/2023 13:23:48 05/16/20 23 05/21/2023 LIPID PANEL WITH RATIO S HDL cholesterol 50 mg/dL > or = 40 normal Not Available [address], [address], 05/21/2023 13:23:48 05/16/20 23 05/21/2023 LIPID PANEL WITH RATIO S triglyceride s 91 mg/dL <150 normal Not Available [address], [place], [address], 05/21/2023 13:23:48 05/16/20 23 05/21/2023 LIPID PANEL WITH RATIO S LDL-choleste rol 135 mg/dL _(moreno c) high Refer ence range : <100 Kayla able range <100 mg/dL for prima ry preve ntion ; <70 mg/dL for patie nts with CHD or diabe tic patie nts with > or = 2 CHD risk facto rs. LDL-C is now calcu lated using the Marguerite n-Hop kins ariellau cathy n, which is a valid ated novel kasey grissom than the Fried marge equat ion in the estim ation of LDL-C . Marguerite knox SS et al. JAKUB. 2013; 310(1 9): 2061- 2068 (http ://ed ucati on.Qu estDi [employer]. com/f aq/FA Q164) Not Available [facility] [address] [address] [place], [address], 05/21/2023 13:23:48 05/16/2005/21/2023 LIPID PANEL WITH RATIO S chol/HDLC ratio 4.1 (calc ) <5.0 normal Not Available [facility] [address] [address] [place], [address], 05/21/2023 13:23:48 05/16/2005/21/2023 LIPID PANEL WITH RATIO S LDL/HDL ratio 2.7 (calc ) Below Gabriels ge Risk: <2.28 Gabriels ge Risk: 2.29- 4.90 Moder ate Risk: 4.91- 7.12 High Risk: >7.13 Not Available [facility] [address] [address] [address], [place], [address], 05/21/2023 13:23:48 05/16/2005/21/2023 LIPID PANEL WITH RATIO S non HDL cholesterol 154 mg/dL _(moreno c) <130 high For patie nts with diabe deysi plus 1 major ASCVD risk facto r, treat ing to a non-H DL-C goal of <100 mg/dL (LDL- C of <70 mg/dL ) is consi dered a thera peuti c optio n. Not Available [facility] [address] [address] [place], [address], 05/21/2023 13:23:48 05/16/2005/21/2023 COMPR EHENS NINA METAB OLIC PANEL glucose 102 mg/dL 65-99 high Fasti ng refer ence inter janelle For someo ne witho ut known diabe deysi, a gluco se value betwe en 100 and 125 mg/dL is consi stent with predi abete s and shoul d be confi rmed with a follo w-up test. Not Available [facility] [address] [address] [place], [address], 05/21/2023 13:23:48 05/16/2005/2105/21/2023 COMPR EHENS NINA METAB OLIC PANEL urea nitrogen (BUN) 13 mg/dL 7-25 normal Not Available [address], [address], 05/21/2023 13:23:48 05/16/20 23 05/21/2023 COMPR EHENS NINA METAB OLIC PANEL creatinine 0.96 mg/dL 0.70-1 .30 normal Not Available [address], [address], 05/21/2023 13:23:48 05/16/20 23 05/21/2023 COMPR EHENS NINA METAB OLIC PANEL eGFR 91 mL/mi n/1.7 3m2 > or = 60 normal The eGFR is based on the CKD-E PI 2020 equat ion. To calcu late the new eGFR from a previ ous Creat inine or Cysta tin C resul t, go to https :[email or web address] [email or web address] [email or web address]/adi muñiz s/ kdoqi /gfr% 5Fcal culat or Not Available [address], [address], 05/21/2023 13:23:48 05/16/20 23 05/21/2023 COMPR EHENS NINA METAB OLIC PANEL BUN/creatini ne ratio NOT APPLIC ABLE (calc ) 6-22 Not Available [address], [address], 05/21/2023 13:23:48 05/16/20 23 05/21/2023 COMPR EHENS NINA METAB OLIC PANEL sodium 138 mmol/ L 135-14 6 normal Not Available [address], [address], 05/21/2023 13:23:48 05/16/20 23 05/21/2023 COMPR EHENS NINA METAB OLIC PANEL potassium 4.3 mmol/ L 3.5-5. 3 normal Not Available [facility] [address], [address], 05/21/2023 13:23:48 05/16/20 23 05/21/2023 COMPR EHENS NINA METAB OLIC PANEL chloride 100 mmol/ L 98-110 normal Not Available [address], [address], 05/21/2023 13:23:48 05/16/20 23 05/21/2023 COMPR EHENS NINA METAB OLIC PANEL carbon dioxide 27 mmol/ L 20-32 normal Not Available [address], [address], 05/21/2023 13:23:48 05/16/20 23 05/21/2023 COMPR EHENS NINA METAB OLIC PANEL calcium 9.5 mg/dL 8.6-10 .3 normal Not Available [address], [address], 05/21/2023 13:23:48 05/16/20 23 05/21/2023 COMPR EHENS INNA METAB OLIC PANEL protein, total 7.2 g/dL 6.1-8. 1 normal Not Available [address], [address], 05/21/2023 13:23:48 05/16/20 23 05/21/2023 COMPR EHENS NINA METAB OLIC PANEL albumin 4.6 g/dL 3.6-5. 1 normal Not Available [address], [address], 05/21/2023 13:23:48 05/16/20 23 05/21/2023 COMPR EHENS NINA METAB OLIC PANEL globulin 2.6 g/dL_ (calc ) 1.9-3. 7 normal Not Available [address], [address], 05/21/2023 13:23:48 05/16/20 23 05/21/2023 COMPR EHENS NINA METAB OLIC PANEL albumin/glob ulin ratio 1.8 (calc ) 1.0-2. 5 normal Not Available [address], [address], 05/21/2023 13:23:48 05/16/20 23 05/21/2023 COMPR EHENS NINA METAB OLIC PANEL bilirubin, total 0.7 mg/dL 0.2-1. 2 normal Not Available [address], [address], 05/21/2023 13:23:48 05/16/20 23 05/21/2023 COMPR EHENS NINA METAB OLIC PANEL alkaline phosphatase 60 U/L 35-144 normal Not Available [address], [address], 05/21/2023 13:23:48 05/16/20 23 05/21/2023 COMPR EHENS NINA METAB OLIC PANEL AST 22 U/L 10-35 normal Not Available [address], [address], 05/21/2023 13:23:48 05/16/20 23 05/21/2023 COMPR EHENS NINA METAB OLIC PANEL ALT 26 U/L 9-46 normal Not Available [address], [address], 05/21/2023 13:23:48 05/16/20 23 05/21/2023 CBC (INCL UDES DIFF/ PLT) white blood cell count 7.1 thous and/u L 3.8-10 .8 normal Not Available [address], [address], 05/21/2023 13:23:49 05/16/20 23 05/21/2023 CBC (INCL UDES DIFF/ PLT) red blood cell count 4.64 erika on/uL 4.20-5 .80 normal Not Available [address], [address], 05/21/2023 13:23:49 05/16/20 23 05/21/2023 CBC (INCL UDES DIFF/ PLT) hemoglobin 14.7 g/dL 13.2-1 7.1 normal Not Available [address], [address], 05/21/2023 13:23:49 05/16/20 23 05/21/2023 CBC (INCL UDES DIFF/ PLT) hematocrit 42.3 % 38.5-5 0.0 normal Not Available [address], [address], 05/21/2023 13:23:49 05/16/20 23 05/21/2023 CBC (INCL UDES DIFF/ PLT) MCV 91.2 fL 80.0-1 00.0 normal Not Available [address], [address], 05/21/2023 13:23:49 05/16/20 23 05/21/2023 CBC (INCL UDES DIFF/ PLT) MCH 31.7 pg 27.0-3 3.0 normal Not Available [address], [address], 05/21/2023 13:23:49 05/16/20 23 05/21/2023 CBC (INCL UDES DIFF/ PLT) MCHC 34.8 g/dL 32.0-3 6.0 normal Not Available [address], [address], 05/21/2023 13:23:49 05/16/20 23 05/21/2023 CBC (INCL UDES DIFF/ PLT) RDW 12.2 % 11.0-1 5.0 normal Not Available [address], [address], 05/21/2023 13:23:49 05/16/20 23 05/21/2023 CBC (INCL UDES DIFF/ PLT) platelet count 304 thous and/u L 140-40 0 normal Not Available [address], [address], 05/21/2023 13:23:49 05/16/20 23 05/21/2023 CBC (INCL UDES DIFF/ PLT) MPV 11.5 fL 7.5-12 .5 normal Not Available [address], [address], 05/21/2023 13:23:49 05/16/20 23 05/21/2023 CBC (INCL UDES DIFF/ PLT) absolute neutrophils 3607 cells /uL 1500-7 800 normal Not Available [address], [address], 05/21/2023 13:23:49 05/16/20 23 05/21/2023 CBC (INCL UDES DIFF/ PLT) absolute lymphocytes 2606 cells /uL 850-39 00 normal Not Available [address], [address], 05/21/2023 13:23:49 05/16/20 23 05/21/2023 CBC (INCL UDES DIFF/ PLT) absolute monocytes 731 cells /uL 200-95 0 normal Not Available [address], [address], 05/21/2023 13:23:49 05/16/20 23 05/21/2023 CBC (INCL UDES DIFF/ PLT) absolute eosinophils 114 cells /uL 15-500 normal Not Available [address], [address], 05/21/2023 13:23:49 05/16/20 23 05/21/2023 CBC (INCL UDES DIFF/ PLT) absolute basophils 43 cells /uL 0-200 normal Not Available [facility] [address], [address], 05/21/2023 13:23:49 05/16/20 23 05/21/2023 CBC (INCL UDES DIFF/ PLT) neutrophils 50.8 % normal Not Available [facility] [address], [address], 05/21/2023 13:23:49 05/16/20 23 05/21/2023 CBC (INCL UDES DIFF/ PLT) lymphocytes 36.7 % normal Not Available [facility] [address], [address], 05/21/2023 13:23:49 05/16/20 23 05/21/2023 CBC (INCL UDES DIFF/ PLT) monocytes 10.3 % normal Not Available [facility] [address], [address], 05/21/2023 13:23:49 05/16/20 23 05/21/2023 CBC (INCL UDES DIFF/ PLT) eosinophils 1.6 % normal Not Available [facility] [address], [address], 05/21/2023 13:23:49 05/16/20 23 05/21/2023 CBC (INCL UDES DIFF/ PLT) basophils 0.6 % normal Not Available [facility] [address], [address], 05/21/2023 13:23:49 05/16/20 23 05/21/2023 URINA LYSIS , COMPL ETE color YELLOW yellow normal Not Available [facility] [address], [address], 05/21/2023 13:23:49 05/16/20 23 05/21/2023 URINA LYSIS , COMPL ETE appearance CLEAR clear normal Not Available [facility] [address], [address], 05/21/2023 13:23:49 05/16/20 23 05/21/2023 URINA LYSIS , COMPL ETE specific gravity 1.013 1.001- 1.035 normal Not Available [address], [address], 05/21/2023 13:23:49 05/16/2005/21/2023 URINA LYSIS , COMPL ETE pH 6.5 5.0-8. 0 normal Not Available [address], [address], 05/21/2023 13:23:49 05/16/20 23 05/21/2023 URINA LYSIS , COMPL ETE glucose NEGATI VE negati ve normal Not Available [address], [address], 05/21/2023 13:23:49 05/16/20 23 05/21/2023 URINA LYSIS , COMPL ETE bilirubin NEGATI VE negati ve normal Not Available [address], [address], 05/21/2023 13:23:49 05/16/20 23 05/21/2023 URINA LYSIS , COMPL ETE ketones NEGATI VE negati ve normal Not Available [address], [address], 05/21/2023 13:23:49 05/16/20 23 05/21/2023 URINA LYSIS , COMPL ETE occult blood NEGATI VE negati ve normal Not Available [address], [address], 05/21/2023 13:23:49 05/16/20 23 05/21/2023 URINA LYSIS , COMPL ETE protein NEGATI VE negati ve normal Not Available [address], [address], 05/21/2023 13:23:49 05/16/20 23 05/21/2023 URINA LYSIS , COMPL ETE nitrite NEGATI VE negati ve normal Not Available [address], [address], 05/21/2023 13:23:49 05/16/20 23 05/21/2023 URINA LYSIS , COMPL ETE leukocyte esterase NEGATI VE negati ve normal Not Available [address], [address], 05/21/2023 13:23:49 05/16/20 23 05/21/2023 URINA LYSIS , COMPL ETE WBC NONE SEEN /hpf < or = 5 normal Not Available [address], [address], 05/21/2023 13:23:49 05/16/20 23 05/21/2023 URINA LYSIS , COMPL ETE RBC NONE SEEN /hpf < or = 2 normal Not Available [address], [address], 05/21/2023 13:23:49 05/16/20 23 05/21/2023 URINA LYSIS , COMPL ETE squamous epithelial cells NONE SEEN /hpf < or = 5 normal Not Available [address], [address], 05/21/2023 13:23:49 05/16/20 23 05/21/2023 URINA LYSIS , COMPL ETE bacteria NONE SEEN /hpf none seen normal Not Available [address], [address], 05/21/2023 13:23:49 05/16/20 23 05/21/2023 URINA LYSIS , COMPL ETE hyaline cast 0-5 /lpf none seen abnormal Not Available [address], [address], 05/21/2023 13:23:49 05/16/20 23 05/21/2023 URINA LYSIS , COMPL ETE note This urine was keeley zed for the prese nce of WBC, RBC, bacte coy, casts , and other forme d eleme nts. Only those eleme nts seen were repor elly. Not Available [facility] [address] [address] [place], [address], 05/21/2023 13:23:49 05/16/2005/21/2023 PSA, TOTAL PSA, total 0.45 NG/mL < or = 4.00 normal The total PSA value from this assay syste m is stand ardiz ed again st the WHO stand gertrudis. The test resul t will be appro ximat tatyana 20% lower when damien red to the equim olar- stand ardiz ed total PSA (Padron man Coult er). Damien rison of seria l PSA resul ts shoul d be inter prete d with this fact in mind. This test was perfo rmed using the Sieme ns chemi lumin escen t metho d. Value s obtai dea from diffe rent assay metho ds canno t be used inter giordano eably . PSA level s, regar dless of value , shoul d not be inter prete d as absol [place] evide nce of the prese nce or absen ce of disea se. Not Available [facility] [address] [address] [place], [address], 05/21/2023 13:23:50 05/27/20 23 07/11/2016 colon oscop y scree jerry (PROC ) No observ ation record ed. BARCODE Not Available 2022 10:51:28 Result Notes None recorded. Problems Name Problem SNOMED Code Status Onset Date Resolution Date Notes Provider Name and Address Organization Details Recorded Time Benign essential hypertension 8660191 Active 2019 Not Available [facility] 3 06:07:17 Hypogonadism 06693073 Active 2019 Not Available [facility] 3 06:07:18 Hyperlipidemia 05936830 Active 2019 Not Available [facility] 3 06:07:18 Long-term drug therapy Active 2021 Not Available [facility] 3 06:07:18 Adult health examination Active 2021 Not Available [facility] 3 06:07:18 Screening for malignant neoplasm of prostate Active 2021 Not Available [facility] 3 06:07:18 Skin lesion 30751513 Active 2021 Not Available [facility] 3 06:07:18 Problem Notes None recorded. Medical Equipment None Reported. Allergies No known drug allergies Medications Name Sig Start Date Stop Date Status Note LastModified by Organization Details LastModified Time losartan 50 mg tablet TAKE 1 TABLET BY MOUTH EVERY DAY active Not Available Not Available No t Available amoxicillin 500 mg capsule TAKE 1 CAPSULE BY MOUTH EVERY 8 HOURS TILL GONE 05/24 completed Not Available Not Available Not Available latanoprost 0.005 % eye drops INSTILL 1 DROP IN RIGHT EYE EVERY DAY AT BEDTIME active Not Available Not Available No t Available niacin ER 1,000 mg tablet,exte nded release 24 hr TAKE 2 TABLETS BY MOUTH EVERY DAY DIRECTED active Not Available Not Available No t Available ibuprofen 800 mg tablet TAKE 1 TABLET BY MOUTH THREE TIMES DAILY 05/24 completed Not Available Not Available Not Available amlodipine 5 mg tablet TAKE 1 TABLET BY MOUTH EVERY DAY active Not Available Not Available No t Available ketorolac 0.5 % eye drops INSTILL 1 DROP INTO RIGHT EYE TWICE DAILY 11/25 completed Not Available Not Available Not Available hydrocodone 7.5 mg-acetamin ophen 325 mg tablet TAKE 1 TABLET BY MOUTH EVERY 6 HOURS NEEDED FOR PAIN 05/24 completed Not Available Not Available Not Available polymyxin B sulfate 10,000 unit-trimet hoprim 1 mg/mL eye drops 05/23 completed Not Available Not Available Not Available losartan 25 mg tablet TAKE 2 TABLETS BY MOUTH EVERY DAY active Not Available Not Available No t Available dorzolamide 22.3 mg-timolol 6.8 mg/mL eye drops INSTILL 1 DROP IN BOTH EYES TWICE A DAY active Not Available Not Available No t Available loteprednol etabonate 0.5 % eye drops,suspe nsion 11/25 completed Not Available Not Available Not Available valsartan 160 mg tablet TAKE 1 TABLET BY MOUTH EVERY DAY active Not Available Not Available No t Available Testim 50 mg/5 gram (1 %) transdermal gel APPLY 5 GRAMS ONTO THE SKIN ONCE DAILY 05/26 completed Not Available Not Available Not Available testosteron e 20.25 mg/1.25 gram per pump act.(1.62 %) transdermal gel APPLY 4 PUMPS TOTAL IN THE MORNING (2 PUMPS TO EACH UPPER ARM/SHOUL KELLY) 06/07 completed Not Available Not Available Not Available Vitals Date Recorded Body mass index (BMI) Body height Oxygen saturation Oxygen saturation in Arterial blood by Pulse oximetry Heart rate Body weight Systolic And Diastolic Provider Name and Address Organization Details Last Updated DateTime 2 31.7 kg/m2 175.26 cm 96 % 96 % 94 /min 48770.3 6 g 120/80 mm[Hg] Not Available [facility] 3 06:02:20 Date Recorded Body mass index (BMI) Body height Oxygen saturation Oxygen saturation in Arterial blood by Pulse oximetry Heart rate Respiratory rate Body temperature Body weight Systolic And Diastolic Provider Name and Address Organization Details Last Updated DateTime 3 32.7 kg/m2 175.26 cm 96 % 96 % 78 /min 16 /min 97.5 [degF] 436029. 71 g 120/80 mm[Hg] Not Available [facility] 3 06:02:21 Date Recorded Body mass index (BMI) Body height Oxygen saturation Oxygen saturation in Arterial blood by Pulse oximetry Heart rate Body temperature Body weight Systolic And Diastolic Provider Name and Address Organization Details Last Updated DateTime 1 32.3 kg/m2 175.26 cm 94 % 94 % 95 /min 98.2 [degF] 80137.5 7 g 120/90 mm[Hg] Not Available [facility] 3 06:02:20 Date Recorded Body mass index (BMI) Body height Oxygen saturation Oxygen saturation in Arterial blood by Pulse oximetry Heart rate Respiratory rate Body temperature Body weight Systolic And Diastolic Provider Name and Address Organization Details Last Updated DateTime 2 31.9 kg/m2 175.26 cm 96 % 96 % 81 /min 16 /min 98.2 [degF] 50370.6 7 g 118/78 mm[Hg] Not Available [facility] 06:02:20 Date Recorded Systolic And Diastolic Provider Name and Address Organization Details Last Updated DateTime 05/26/2023 110/70 mm[Hg] RAFAEL Walker [address], [facility] [address], [place], [address], [facility] [employer] 05/26/2023 16:42:23 Date Recorded Body height Body temperature Body mass index (BMI) Body weight Respiratory rate Oxygen saturation Oxygen saturation in Arterial blood by Pulse oximetry Heart rate Systolic And Diastolic Provider Name and Address Organization Details Last Updated DateTime 175.26 cm 98.3 [degF] 33.1 kg/m2 972162. 69 g 16 /min 92 % 92 % 74 /min 122/78 mm[Hg] SALIMA Phillips [place] [employer] [employer] 16:15:06 Social History Question Answer Notes LastModified by Organizat ion Details LastModified Time Tobacco Smoking Status Never Smoker Not Available [facility] 12/25/2022 05:56:22 What Is Your Level Of Caffeine Consumption? Heavy [id number] Information not available 12/25/2022 In The 14 Days Before Symptom Onset, Have You Had Close Contact With A Laboratory-confirm ed COVID-19 While That Case Was Ill? No [id number] Information not available 12/25/2022 In The 14 Days Before Symptom Onset, Have You Had Close Contact With A Person Who Is Under Investigation For COVID-19 While That Person Was Ill? No [id number] Information not available 12/25/2022 What Type Of Diet Are You Following? REGULAR [id number] Information not available 12/25/2022 Have There Been Any Changes To Your Family Or Social Situation? No [id number] Information not available 12/25/2022 Do You Use Insect Repellent Routinely? No [id number] Information not available 12/25/2022 Have You Ever Been Counseled For Unhealthy Alcohol Use? No [id number] [id number] Information not available 12/25/2022 What Is Your Relationship Status? [id number] Information not available 12/25/2022 Do You Use Your Seat Belt Or Car Seat Routinely? Yes [id number] Information not available 12/25/2022 Do You Have Smoke And Carbon Monoxide Detectors In Your Home? Yes [id number] Information not available 12/25/2022 Do You Use Sunscreen Routinely? Yes [id number] 026 Information not available 12/25/2022 Has Tobacco Cessation Counseling Been Provided? No [id number] 026 Information not available 12/25/2022 Have You Recently Traveled Abroad? No [id number] [id number] Information not available 12/25/2022 Do You Have Any Dietary Restrictions? No [id number] 026 Information not available 12/25/2022 Sex: Unknown Functional Status Question Answer Note LastModified by Organizat ion Details LastModified Time Do you use any illicit or recreational drugs? No [id number] Information not available 12/25/2022 Do you or have you ever used any other forms of tobacco or nicotine? No [id number] 026 Information not available 12/25/2022 What is your level of alcohol consumption? Occasional [id number] 026 Information not available 12/25/2022 What is your exercise level? Heavy [id number] 026 Information not available 12/25/2022 Mental Status None recorded. Family History Relationship Description Onset Age of this Age Resolved Age Notes LastModified by Organization Details LastModified Time Mother Malignant neoplasm of kidney [id number] Not available 12/25/2022 05:58:21 Medical History No medical history recorded. Past Encounters Encounter ID Performer Location Encounter Start Date Encounter Closed Date Diagnosis/Indication Diagnosis SNOMED-CT Code Diagnosis ICD10 Code Diagnosis IMO Codes Diagnosis Note [id number] RAFAEL Walker [facility] [place] [address] [place] [address] 05/23/2021 00:00:00 05/23/2021 22:19:49 [id number] RAFAEL Walker [facility] [place] [address] [place] [address] 11/23/2021 00:00:00 11/25/2021 08:29:01 [id number] Guillermo Benavidez MD [facility] [place] [address] [place] [address] 05/24/2022 00:00:00 05/24/2022 17:15:29 [id number] RAFAEL Walker [facility] [place] [address] [place] [address] 11/25/2022 00:00:00 11/26/2022 10:13:23 [id number] RAFAEL Walker [facility] [place] [address] [place] [address] 05/26/2023 15:55:54 05/26/2023 16:50:54 Benign essential hypertension 7675801 I10 stable on amlodipine and losartan . Hyperlipidemia 59343454 E78.5 LDL has gone up some , on niacin which is keeping trigs and HDL in good range. work on diet some to get the LDL down. pt does NOT want statin therapy. repeat labs in october Hypogonadism 85338552 E2 9.1 testostero ne total is up in to 400's range. following. off gel therapy due to cost. Long-term drug therapy 971224596 Z79.899 next labs in oct. Diabetes m ellitus screening 691313603 Z13.1 Health Concerns Section Related Observation LastModified by Organization Detai ls LastModified Time None Recorded Concern Status LastModified by Organization Details LastModified Time None Recorded Advance Directives Directive None Recorded Payers Insurance Date Sequence Insurance Name Policy Number Policy Elizondo Covered Member ID Elizondo Member ID Guarantor Name 05/26/2023 1 [employer] [facility] ([facility] [id number] Du Buckley [id number] Du Buckley 05/27/2023 1 [facility] [id number] Du Buckley [id number] Du Buckley Notes Date Note Type Note Provider Name and Address Organization Details Recorded Time 3 text/html HyperlipidemiaReported by PatientHPIFor duration, patient reportschronic. For compliance, patient reportsnoncompliant with dietbut reportscompliantandexercise s. For risk factors, patient reportshypertension. For control, patient reportsusually well controlled. For complications, patient reportsno coronary artery disease,no peripheral artery disease, andno cardiovascular disease. HypertensionReported by PatientHPIFor duration, patient reportshas noted for years. For onset/timing, patient reportsbetter. For alleviating factors, patient reportsmedication. For associated symptoms, patient reportsno shortness of breath,no fatigue,no palpitations,no decline in exercise capacity, andno snoring. RAFAEL Walker [address] [facility], [facility] [address], [place], [address], [place] [facility] 05/26/2023 16:48:37
[2025-09-14 08:18] VITALS: BP 126/83; PULSE 58; RESP 18; TEMP 36.1; O2SAT 98
[2025-09-14] MEDS: LACTATED RINGERS 1,000 ML 150 ML IV CONT (08:27)
--- NOTE | 2025-09-14 08:54 | P.PNAN_ITS ---
Anes - Initial Pre Proc Eval Procedure: Operation Date: 09/14/25 09:30 Proposed Procedures p Screening Colonoscopy - Sean Lancaster MD Date/Time: 09/14/25 08:54 Surgeon: Sean Lancaster MD Pre Op Diagnosis: Screening Patient Data Age: 60 Gender: M Height: 1.75 m Weight: 95.9 kg Last Vital Signs Temp 97 F L 09/14/25 08:18 Pulse 58 L 09/14/25 08:18 Resp 18 09/14/25 08:18 BP 126/83 09/14/25 08:18 Pulse Ox 98 09/14/25 08:18 O2 Del Method Room Air 09/14/25 08:18 Allergies Allergy/AdvReac Type Severity Reaction Status Date / Time No Known Allergies Allergy Verified 09/14/25 08:15 Home Medications ?Medication ?Instructions ?Recorded ?Confirmed ?Type losartan 50 mg tablet 50 mg PO DAILY 01/20/2001/18 History niacin 1,000 mg tablet,extended 2,000 mg PO ONCE 01/1908/29/25 History release testosterone 1.62 % (20.25 mg/1.25 1 packet transderma l DAILY 01/20/20 08/29/25 History gram) transdermal gel packet (AndroGel) amlodipine 5 mg tablet 5 mg PO DAILY #90 tabs 07/2708/29/25 Rx dorzolamide 22.3 mg-timolol 6.8 1 drp RIGHT EYE Q12H 1 10/29/24 08/29/25 History mg/mL eye drops latanoprost 0.005 % eye drops 1 drp RIGHT EYE QPM 01/1808/29/25 History Patient hx anesthesia problems: none Family hx anesthesia problems: none Results Review: All pre-operative results and documents have been reviewed as part of the pre- operative evaluation. COUNTS INCLUDE 234 BEDS AT THE [facility] Family History Family History Sibling Family history of elevated blood lipids Mother Family history of malignant neoplasm of kidney Social History Social History Smoking status: Never smoker Alcohol intake: current Living arrangements: with family Spiritual care concerns: No Anes - Eval Final PreProcedure Day of Procedure 09/14/25 08:54 Patient weight: obese Lungs: normal air movement Airway: Mallampati scale class II Neurological: alert and oriented Last oral intake: >/= 8 hours ASA classification: II Emergent: no Anesthetic plan: proceed Anesthesia type and monitoring: general GIVS and standard monitoring Results Review: All pre-operative results and documents have been reviewed as part of the pre- operative evaluation. HTN, BMI 31, overall good exercise tolerance. Informed Consent: The patient's anesthetic plan and its attendant risks and benefits were discussed with the patient/family/POA. Questions were solicited and answers provided to the satisfaction of the patient/family/POA.
--- NOTE | 2025-09-14 09:23 | PM.IMHP ---
H&P: HPI History of Present Illness Date/Time: 09/14/25 09:23 Chief Complaint: Screening colonoscopy Narrative: This is the patient's 2nd screening colonoscopy. There are no GI symptoms and there is no family history of colorectal cancer. Review of Systems Review of Systems: All systems reviewed & are unremarkable except as noted in HPI and below PMFSH Family History Family History Sibling Family history of elevated blood lipids Mother Family history of malignant neoplasm of kidney Social History Social History Smoking status: Never smoker Alcohol intake: current Living arrangements: with family Spiritual care concerns: No Meds Home Medications and Allergies Home Medications ?Medication ?Instructions ?Recorded ?Confirmed ?Type losartan 50 mg tablet 50 mg PO DAILY 01/20/20 08/29/25 History niacin 1,000 mg tablet,extended 2,000 mg PO ONCE 01/20/20 08/29/25 History release testosterone 1.62 % (20.25 mg/1.25 1 packet transdermal DAILY 01/20/20 08/29/25 History gram) transdermal gel packet (AndroGel) amlodipine 5 mg tablet 5 mg PO DAILY #90 tabs 07/27/20 08/29/25 Rx dorzolamide 22.3 mg-timolol 6.8 1 drp RIGHT EYE Q12H 08/29/25 08/29/25 History mg/mL eye drops latanoprost 0.005 % eye drops 1 drp RIGHT EYE QPM 08/29/25 08/29/25 History Allergies Allergy/AdvReac Type Severity Reaction Status Date / Time No Known Allergies Allergy Verified 09/14/25 08:15 Vital Signs Vital Signs - 24 hr 09/14/25 08:18 Temperature 97 F L Pulse Rate 58 L Respiratory Rate 18 Blood Pressure 126/83 Pulse Oximetry 98 Oxygen Delivery Room Air Exam Const: General: cooperative and healthy appearing Resp: Effort & Inspection: normal respiratory effort and able to speak in complete sentences Auscultation: clear to auscultation bilaterally Cardio: Rate: regular rate Rhythm: regular rhythm GI: Inspection: normal to inspection GI Palp: No No hepatosplenomegaly present Auscultation: normal bowel sounds Rectal Exam: deferred Skin: General skin exam: normal color Psych: Appearance: grossly normal Mental Status: mental status grossly normal Assessment and Plan Assessment and plan (1) Encounter for screening colonoscopy: Code(s): Z12.11 - Encounter for screening for malignant neoplasm of colon Status: Acute Assessment and Plan: The patient is deemed a good candidate for the procedure. Consent signed. Will proceed.
[2025-09-14] MEDS: SIMETHICONE ORAL SUSPENSION 20 MG/0.3 ML 30 ML BOTTLE 0.6 ML IRRIGATION (09:35)
--- NOTE | 2025-09-14 09:45 | S_PTH ---
PATIENT: Du Buckley LOC: MARY #:[id number] AGE/SX: 60/M ROOM: RE09/14/[address]: Sean Lancaster MD : 1965 BED: DIS: 09/14/2025 SPEC #: [id number] RECD: 09/14/25 10:14 STATUS: GILA REPierre #: [id number] LORENZA: 09/14/25 09:[address]: Sean Lancaster DEPT: [facility] Surgical RECD BY: Kayla Ledesma ENTERED: 09/14/25 10:14 SP TYPE: Surgical OTHR DR: Angelia Garcia, PA-C Tissues: A - Colon Polypectomy Procedures: Hematoxylin and Eosin Stain Gross and Microscopic Level 4
[2025-09-14 09:46] VITALS: BP 108/75; PULSE 74; RESP 22; O2SAT 95
[2025-09-14 09:56] VITALS: BP 114/79; PULSE 56; RESP 24; O2SAT 95
[2025-09-14 10:06] VITALS: BP 106/78; PULSE 58; RESP 12; O2SAT 99
== END 2025-09-14 10:15 | disposition home or self-care (01) ==
PROVIDERS: PCP Physician Assistant; Referring Provider Physician Assistant; Visit Provider Internal Medicine Gastroenterology
PROC: 0DJD8ZZ Inspection of Lower Intestinal Tract, Via Natural or Artificial Opening Endoscopic (ICD-10-PCS; CPT 45378; principal; 2025-09-14 09:30)
DX: Z12.11 Encounter for screening for malignant neoplasm of colon (principal); D12.2 Benign neoplasm of ascending colon; K64.8 Other hemorrhoids; I10 Essential (primary) hypertension; E66.9 Obesity, unspecified; Z68.31 Body mass index [BMI] 31.0-31.9, adult; Z80.51 Family history of malignant neoplasm of kidney
CPT/HCPCS: 45385; 88305; J2003; J2704; J7120